=== PATIENT | female | born 1960 | race Caucasian/White ===

== ENCOUNTER 2016-12-15 10:36 | Emergency (ER) | payer BC ==
[~2016-12-15] VITALS: Ht 152.4 cm; Wt 32.7 kg
[~2016-12-15 10:36] MED LIST: ADVIN50050 INH; LEVO1TAB34 PO; OMEP20CA9 PO; PRED10TA PO; PRVHFAIN INH; TIOTCAP INH
[2016-12-15 10:44] VITALS: Ht 152.4 cm; Wt 32.7 kg
[2016-12-15 10:53] VITALS: O2SAT 96
[2016-12-15] MEDS ORDERED: ALBUT/IPRATROP 3MG/0.5MG NEB 3 ML VIAL INH STA (10:58)
[2016-12-15] MEDS ORDERED: PRED10TA PO (11:04)
[2016-12-15] MEDS ORDERED: SPRIN/30 INH (11:04)
[2016-12-15] MEDS ORDERED: VARE1PAK15 PO (11:07)
[2016-12-15] MEDS ORDERED: SYMIN160 INH (11:07)
[2016-12-15] MEDS ORDERED: SODIUM CHLORIDE 0.9% 1000ML 1,000 ML IV STA (11:18)
[2016-12-15] MEDS ORDERED: SODIUM CHLORIDE 0.9% 250ML 250 ML IV STA (11:18)
[2016-12-15] MEDS ORDERED: ONDANSETRON INJ 2 MG/ML 2 ML VIAL IV STA (11:21)
[2016-12-15] MEDS ORDERED: MoRPHine SULFATE 2 MG/ML CARP IV STA (11:21)
--- NOTE | 2016-12-15 11:25 | DIAGNOSTIC IMAGING REPORT ---
CHEST ONE VIEW PORTABLE CLINICAL HISTORY: Shortness of breath. Lung adenocarcinoma status post resection. COMPARISON STUDY: Chest CT March 21, 2016 and chest radiograph September 08, 2016 per FINDINGS: Postsurgical findings within the right lower lobe are noted. Nipple shadows project over each mid lung. There is no pneumothorax or pleural effusion. Lung hyperexpansion with emphysema is noted. Cardiac size is normal. Mediastinal contours are normal. There is no evidence of pulmonary edema. IMPRESSION: No acute findings. No change in appearance of the chest. Electronically signed by: Campos Ortiz M.D. 12/15/2016 11:23 AM Dictated Date/Time: 12/15/2016 11:22 AM
[2016-12-15 11:31] LABS: BASO % 0.3 %; BASO ABS # 0.03 K/uL (0-0.2); COMPLETE YES; EOS % 0.2 %; HEMATOCRIT 47.6 % (37-47); IG% 0.3 %; LYMPH % 11.4 %; LYMPH ABS # 1.18 K/uL (1.2-3.4); MEAN CELL VOLUME 92.2 fL (80-100); MEAN CORPUSCULAR HEMOGLOBIN 29.8 pg (25-34); MEAN CORPUSCULAR HGB CONC 32.4 g/dl (32-36); MEAN PLATELET VOLUME 10.5 fL (7.4-10.4); MONO % 10.4 %; NEUT % 77.4 %; PLATELET COUNT 256 K/uL (130-400); RED BLOOD COUNT 5.16 M/uL (4.2-5.4); WHITE BLOOD COUNT 10.36 K/uL (4.8-10.8)
[2016-12-15 11:48] LABS: ALT/SGPT 20 U/L (12-78); AST/SGOT 15 U/L (15-37); BLOOD UREA NITROGEN 13 mg/dl (7-18); BUN/CREATININE RATIO 21.3 (10-20); CARBON DIOXIDE 39 mmol/L (21-32); CHLORIDE 97 mmol/L (98-107); GLUCOSE 105 mg/dl (70-99); MAGNESIUM 2.2 mg/dl (1.8-2.4); POTASSIUM 4.2 mmol/L (3.5-5.1); SODIUM 140 mmol/L (136-145)
[2016-12-15 12:00] LABS: ALB/GLOB RATIO 1.1 (0.9-2); ALKALINE PHOSPHATASE 70 U/L (45-117); PHOSPHORUS 3.4 mg/dl (2.5-4.9); THYROID STIMULATING HORMONE 0.424 uIu/ml (0.300-4.500)
--- NOTE | 2016-12-15 12:23 | EMERGENCY ROOM VISIT NOTE ---
History First contact with patient: 10:50 Chief Complaint: RESPIRATORY PROBLEMS Stated Complaint: CAN'T BREATHE Nursing Triage Summary: pt reports increased sob with GAMBOA that started Fri, decreased po intake, + cough , no mucus production, denies cp or NV History of Present Illness The patient is a 56 year old female who presents to the Emergency Room with complaints of difficulty breathing. She has a history of Lung Ca with a RLL wedge resection last year by Dr Costa and COPD for which she is on intermittent home oxygen. She reports she was coughing more over the last week but couldn't bring anything up. She was wearing her home oxygen more than usual throughout the last two days. She was however at 1L instead of at the recommended 2L. She does report continued smoking despite her home oxygen. She denies any chest pain but has back spasms and GERD symptoms currently. She reports occasional nausea but has not vomited. She has apparently been working up until Thursday. Review of Systems See HPI for pertinent positives & negatives. A total of 10 systems reviewed and were otherwise negative. Past Medical/Surgical History Medical Problems: (1) COPD (chronic obstructive pulmonary disease) (2) Lung cancer Cachexia Low appetite Family History Cancer Lung disease Social History Smoking Status: Current Every Day Smoker Drug Use: none Occupation Status: employed ([employer]) Current/Historical Medications Scheduled Albuterol (Ventolin Hfa), 2 PUFFS INH QID Budesonide/Formoterol Fumarate (Symbicort 160/4.5 Inhaler), 2 PUFFS INH BID Omeprazole (Prilosec), 1 CAP PO DAILY Prednisone (Prednisone), 10 MG PO DAILY Tiotropium [place] (Spiriva Handihaler), 1 CAP INH DAILY Varenicline Tartrate (Chantix Starting Month Pa), 1 TAB PO UD Allergies Coded Allergies: No Known Allergies (Unverified , 12/15/16) Physical Exam Vital Signs Date Time Temp Pulse Resp B/P Pulse Ox O2 Delivery O2 Flow Rate FiO2 12/15/16 15:17 87 16 105/64 99 Nasal Cannula 3.0 12/15/16 14:28 85 12/15/16 14:26 83 16 98/59 96 Nasal Cannula 2.0 12/15/16 12:53 37.1 86 17 94 Nasal Cannula 2.0 12/15/16 12:46 88 17 94 12/15/16 12:41 88 18 94 12/15/16 12:36 86 17 94 12/15/16 12:28 97/62 12/15/16 12:06 86 17 94 12/15/16 11:58 106/66 12/15/16 11:45 91 20 97/63 96 Nasal Cannula 2.0 12/15/16 11:45 97/63 12/15/16 11:36 90 25 12/15/16 11:24 85 12/15/16 10:53 96 Nasal Cannula 4.0 12/15/16 10:44 37.1 120 20 103/64 89 Room Air Physical Exam GENERAL: Awake, alert, cachexic, mildly distressed. HENT: Normocephalic, atraumatic. Oropharynx unremarkable. EYES: Normal conjunctiva. Sclera non-icteric. NECK: Supple. No nuchal rigidity. FROM. No JVD. RESPIRATORY: Clear to auscultation. Intermittent wheeze. CARDIAC: Regular rate, normal rhythm. Extremities warm and well perfused. Pulses equal. ABDOMEN: Soft, non-distended. No tenderness to palpation. No rebound or guarding. No masses. RECTAL: Deferred. MUSCULOSKELETAL: Chest examination reveals no tenderness. The back is symmetrical on inspection without obvious abnormality. There is no CVA tenderness to palpation. No joint edema. LOWER EXTREMITIES: Calves are equal size bilaterally and non-tender. No edema. No discoloration. NEURO: Normal sensorium. No sensory or motor deficits noted. SKIN: No rash or jaundice noted. Medical Decision & Procedures Laboratory Results 12/15/16 11:20 Red Blood Count 5.16, Mean Corpuscular Volume 92.2, Mean Corpuscular Hemoglobin 29.8, Mean Corpuscular Hemoglobin Concent 32.4, Mean Platelet Volume 10.5, Neutrophils (%) (Auto) 77.4, Lymphocytes (%) (Auto) 11.4, Monocytes (%) (Auto) 10.4, Eosinophils (%) (Auto) 0.2, Basophils (%) (Auto) 0.3, Neutrophils # (Auto ) 8.02, Lymphocytes # (Auto) 1.18, Monocytes # (Auto) 1.08, Eosinophils # (Auto ) 0.02, Basophils # (Auto) 0.03 12/15/16 11:20 Test 12/15/16 11:20 12/15/16 14:05 White Blood Count 10.36 K/uL (4.8-10.8) Red Blood Count 5.16 M/uL (4.2-5.4) Hemoglobin 15.4 g/dL (12.0-16.0) Hematocrit 47.6 % (37-47) Mean Corpuscular Volume 92.2 fL (80-100) Mean Corpuscular Hemoglobin 29.8 pg (25-34) Mean Corpuscular Hemoglobin Concent 32.4 g/dl (32-36) Platelet Count 256 K/uL (130-400) Mean Platelet Volume 10.5 fL (7.4-10.4) Neutrophils (%) (Auto) 77.4 % Lymphocytes (%) (Auto) 11.4 % Monocytes (%) (Auto) 10.4 % Eosinophils (%) (Auto) 0.2 % Basophils (%) (Auto) 0.3 % Neutrophils # (Auto) 8.02 K/uL (1.4-6.5) Lymphocytes # (Auto) 1.18 K/uL (1.2-3.4) Monocytes # (Auto) 1.08 K/uL (0.11-0.59) Eosinophils # (Auto) 0.02 K/uL (0-0.5) Basophils # (Auto) 0.03 K/uL (0-0.2) RDW Standard Deviation 47.5 fL (36.4-46.3) RDW Coefficient of Variation 13.9 % (11.5-14.5) Immature Granulocyte % (Auto) 0.3 % Immature Granulocyte # (Auto) 0.03 K/uL (0.00-0.02) Anion Gap 4.0 mmol/L (3-11) Est Creatinine Clear Calc Drug Dose 54.1 ml/min Estimated GFR () 118.1 Estimated GFR (Non- 101.9 BUN/Creatinine Ratio 21.3 (10-20) Calcium Level 9.0 mg/dl (8.5-10.1) Phosphorus Level 3.4 mg/dl (2.5-4.9) Magnesium Level 2.2 mg/dl (1.8-2.4) Total Bilirubin 0.2 mg/dl (0.2-1) Aspartate Amino Transf (AST/SGOT) 15 U/L (15-37) Alanine Aminotransferase (ALT/SGPT) 20 U/L (12-78) Alkaline Phosphatase 70 U/L (45-117) Troponin I < 0.015 ng/ml (0-0.045) Total Protein 7.3 gm/dl (6.4-8.2) Albumin 3.8 gm/dl (3.4-5.0) Globulin 3.5 gm/dl (2.5-4.0) Albumin/Globulin Ratio 1.1 (0.9-2) Lipase 71 U/L (73-393) Thyroid Stimulating Hormone (TSH) 0.424 uIu/ml (0.300-4.500) Influenza Type A Antigen Neg for Influ A (NEG) Influenza Type B Antigen Neg for Influ B (NEG) Medications Administered Medications (Trade) Dose Ordered Sig/Steven Route Start Time Stop Time Status Last Admin Dose Admin Albuterol/ Ipratropium 3 ml 3 ml ONE STAT INH 12/15/16 10:58 12/15/16 10:59 DC 12/15/16 11:06 3 ML Sodium Chloride 1,000 ml @ 125 mls/hr Q8H STAT IV 12/15/16 11:18 12/15/16 15:26 DC 12/15/16 11:39 125 MLS/HR Sodium Chloride (Nss 250ml) 250 ml @ 999 mls/hr Q16M STAT IV 12/15/16 11:18 12/15/16 11:33 DC 12/15/16 11:40 999 MLS/HR Morphine Sulfate (MoRPHine SULFATE INJ) 2 mg NOW STAT IV 12/15/16 11:21 12/15/16 11:23 DC 12/15/16 11:39 2 MG Ondansetron HCl (Zofran Inj) 4 mg NOW STAT IV 12/15/16 11:21 12/15/16 11:23 DC 12/15/16 11:38 4 MG Procedure CHEST ONE VIEW PORTABLE CLINICAL HISTORY: Shortness of breath. Lung adenocarcinoma status post resection. COMPARISON STUDY: Chest CT March 21, 2016 and chest radiograph September 08, 2016 per FINDINGS: Postsurgical findings within the right lower lobe are noted. Nipple shadows project over each mid lung. There is no pneumothorax or pleural effusion. Lung hyperexpansion with emphysema is noted. Cardiac size is normal. Mediastinal contours are normal. There is no evidence of pulmonary edema. IMPRESSION: No acute findings. No change in appearance of the chest. CT OF THE HEAD WITHOUT CONTRAST CLINICAL HISTORY: Headaches. History of lung cancer. COMPARISON STUDY: No previous studies for comparison. CT DOSE: 795.47 mGy.cm TECHNIQUE: Helical axial images of the head were obtained without IV contrast. Automated exposure control was utilized for the study. FINDINGS: No acute intracranial hemorrhage, midline shift or mass effect is present. Ventricular system is normal. The basilar cisterns are patent. There are no extra-axial collections. A few white matter hypodensities may reflect small vessel disease. There are no findings to suggest acute dural sinus thrombosis or acute territorial infarct. No significant calvarial abnormalities are present. There is trace fluid within the left mastoid air cells. Visualized portions of the sinuses are clear. IMPRESSION: 1. No acute intracranial findings. 2. No evidence of intracranial metastatic disease on this unenhanced exam. ECG Indication: SOB/dyspnea Rhythm: sinus with SA Change: no significant change ED Course 1040: The patient was evaluated in room C9. 1045: I ordered a CBC, CMP, CXR, Duoneb 1125: Dr Davlia evaluated the patient, who was feeling nauseated. We provided her with Compazine and 2mg Morphine and a 500mL NSS bolus as her HR was elevated and BP low. 1221: We ordered a CT head as well. I reviewed the patient and she was sitting upright talking comfortably with her . 1:20: I checked on the patient. She reported her headache had resolved. I told them they would be discharged home if she felt well. They agreed, then as I left called me back into the room, and said they would not want to take her home if she was not able to walk as she usually does. I reminded them that they should not be smoking if she has home oxygen. 1:35: We will give her food and ambulate her. If she does not tolerate this we will admit her to inpatient rehab. 2:00: I discussed her case with the Epic Trainer Jackie. She discussed inpatient rehab with the patient which she denied. 2:11: We completed a flu swab antigen test which was negative. Medical Decision 56 yo F with hx lung Ca and end-stage COPD who presents with worsening shortness of breath over 3 days - differential includes influenza, dehydration, metastases of lung cancer, COPD exacerbation, or pneumonia. Her breathing improved when placed on 4L Nasal cannula. Her BP and HR improved after fluid bolus, and were later 97/62 with a HR of 91. She is extremely cachetic at a weight of 32kg which is concerning for metastases. Her CXR was reviewed and was normal. She did not have a leukocytosis. When she was on 2L oxygen her saturations improved, and since she felt weak getting up we offered that she could go to inpatient rehab as she did not have any criteria for admission. She reported that she felt like she had the flu and did not want to go to inpatient rehab. The patient then agreed she would go home, and was discharged in good condition. Impression Primary Impression: Shortness of breath Additional Impression: Viral URI Departure Information Dispostion Home / Self-Care Condition GOOD Referrals Amanda Rey M.D. (PCP) Patient Instructions My [facility] Resident Tracking Resident Involvement: Resident Care Provided Care Provided: Adult ED Problem Qualifiers
[2016-12-15 12:53] VITALS: TEMP 37.1
--- NOTE | 2016-12-15 13:09 | DIAGNOSTIC IMAGING REPORT ---
CT OF THE HEAD WITHOUT CONTRAST CLINICAL HISTORY: Headaches. History of lung cancer. COMPARISON STUDY: No previous studies for comparison. CT DOSE: 795.47 mGy.cm TECHNIQUE: Helical axial images of the head were obtained without IV contrast. Automated exposure control was utilized for the study. FINDINGS: No acute intracranial hemorrhage, midline shift or mass effect is present. Ventricular system is normal. The basilar cisterns are patent. There are no extra-axial collections. A few white matter hypodensities may reflect small vessel disease. There are no findings to suggest acute dural sinus thrombosis or acute territorial infarct. No significant calvarial abnormalities are present. There is trace fluid within the left mastoid air cells. Visualized portions of the sinuses are clear. IMPRESSION: 1. No acute intracranial findings. 2. No evidence of intracranial metastatic disease on this unenhanced exam. Electronically signed by: Campos Ortiz M.D. 12/15/2016 1:07 PM Dictated Date/Time: 12/15/2016 1:03 PM
[2016-12-15 15:17] VITALS: BP 105/64; PULSE 87; O2SAT 99
[2016-12-15 16:41] LABS: INFLUENZA A PCR Neg for Influ A (NEG); INFLUENZA B PCR Neg for Influ B (NEG)
--- NOTE | 2016-12-16 19:58 | EMERGENCY ROOM VISIT NOTE ---
ED Visit Note First contact with patient: 10:50 Resident Physician Supervision Note: I interviewed and examined the patient. Discussed with Dr. Núñez and agree with findings and plan as documented in the note. Any exceptions or clarifications are listed here: This patient was evaluated and appeared to be in no significant distress. Patient was resting comfortably on her home oxygen. She is able to ambulate without difficulty. Patient will be discharged to follow-up with her primary care physician. She will return to the ER for worsening of symptoms or any medical concerns. Diagnosis: Shortness of breath, viral URI Documented By: Melissa Davila
== END 2016-12-15 15:19 | disposition home or self-care (01) ==
LOC: C.EDB 10:37 → C.EDC 15:19
DX: J06.9 Acute upper respiratory infection, unspecified (principal); R06.02 Shortness of breath; J44.9 Chronic obstructive pulmonary disease, unspecified; F17.200 Nicotine dependence, unspecified, uncomplicated; Z79.899 Other long term (current) drug therapy; Z85.118 Personal history of other malignant neoplasm of bronchus and lung

== ENCOUNTER → 2017-01-07 | Outpatient (CLI) | payer BC ==
[~2017-01-07] MED LIST changes: -ADVIN50050 INH; +IPRASOL4 INH; +LEVO-366 PO; -LEVO1TAB34 PO; +OPTIRAY 320 IV PRN; +PRLSR20 PO; +SPRIN/30 INH; +SYMIN160 INH; -TIOTCAP INH; +VARE1PAK15 PO; +VNTHFA/IN INH
--- NOTE | 2017-01-07 13:13 | DIAGNOSTIC IMAGING REPORT ---
CHEST CT WITH CONTRAST CT DOSE: 211.46 mGy.cm HISTORY: Adenocarcinoma C34.90 Adenocarcinoma of lungD38.1 Neoplasm of uncertain behavior TECHNIQUE: Multiaxial CT images of the chest were performed following the intravenous administration of contrast. COMPARISON: 03/21/2016 FINDINGS: Stable postoperative change including postoperative nodularity/scarring of the right infrahilar region. Baseline emphysematous change is stable. There is no evidence for new interval or progressive component of nodularity or infiltrative change. Hilar and mediastinal regions show no significant adenopathy. IMPRESSION: Stable evaluation of the chest. Unchanging postoperative change right base. No new interval or progressive process Electronically signed by: Sajan Magana M.D. 01/07/2017 1:11 PM Dictated Date/Time: 01/07/2017 12:54 PM
== END | disposition home or self-care (01) ==
LOC: C.CTS 12:20
PROVIDERS: ATTEND Surgery
DX: C34.90 Malignant neoplasm of unspecified part of unspecified bronchus or lung (principal); D38.1 Neoplasm of uncertain behavior of trachea, bronchus and lung

== ENCOUNTER 2017-03-02 20:01 | Emergency (ER) | payer BC ==
[~2017-03-02] VITALS: Ht 152.4 cm; Wt 30.6 kg
[~2017-03-02 20:01] MED LIST changes: -IPRASOL4 INH; -LEVO-366 PO; -OPTIRAY 320 IV PRN; -PRLSR20 PO; -VNTHFA/IN INH
[2017-03-02 20:06] VITALS: TEMP 36.8; Ht 152.4 cm; Wt 30.6 kg
[2017-03-02] MEDS ORDERED: METHYLPREDNISOLONE 125 MG VIAL IV STA (20:23)
[2017-03-02] MEDS ORDERED: SODIUM CHLORIDE 0.9% 1000ML 1,000 ML IV STA (20:23)
[2017-03-02] MEDS ORDERED: ALBUT/IPRATROP 3MG/0.5MG NEB 3 ML VIAL INH STA (20:23)
--- NOTE | 2017-03-02 20:31 | EMERGENCY ROOM VISIT NOTE ---
History Report prepared by Franco: Kathryn Givens Under the Supervision of: Dr. Melissa Davila M.D. First contact with patient: 20:15 Chief Complaint: RESPIRATORY PROBLEMS Stated Complaint: CANT BREATHE Nursing Triage Summary: pt states having trouble breathing, usually uses 1l o2 by nc at home but has been using 2.5 at home. 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 The patient states that she has had trouble breathing and called her PCP one week ago and got albuterol but it did not help her shortness of breath. She states that she started an antibiotic and prednisone a few days ago but it has still persisted. The patient states that she has been coughing and had a productive cough today with yellow sputum. She also states she has been more fatigued recently. She denies any chest pain. She states that she took 30 mg of prednisone today before coming to the ED. 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 A total of 10 systems reviewed and were otherwise negative. Past Medical & Surgical Medical Problems: (1) COPD (chronic obstructive pulmonary disease) (2) Lung cancer Family History Cancer Lung disease Social History Smoking Status: Current Every Day Smoker Drug Use: none Occupation Status: employed Current/Historical Medications Scheduled Budesonide/Formoterol Fumarate (Symbicort 160/4.5 Inhaler), 2 PUFFS INH BID Ipratropium-Albuterol (Duoneb), 1 TREATMENT INH TID Levofloxacin (Levaquin), 500 MG PO DAILY Omeprazole (Prilosec), 20 MG PO DAILYBB Prednisone (Prednisone), 10 MG PO DAILY Tiotropium [place] (Spiriva Handihaler), 1 CAP INH DAILY Varenicline Tartrate (Chantix Starting Month Pa), 2 TAB PO UD Scheduled PRN Albuterol Hfa (Ventolin Hfa), 2 PUFFS INH QID PRN for SOB/Wheezing Allergies Coded Allergies: No Known Allergies (Unverified , 03/02/17) Physical Exam Vital Signs Date Time Temp Pulse Resp B/P Pulse Ox O2 Delivery O2 Flow Rate FiO2 03/02/17 22:43 92 22 125/73 93 03/02/17 21:21 94 18 98/74 95 Nebulizer 03/02/17 21:01 88 03/02/17 20:41 96 Nasal Cannula 2.0 03/02/17 20:06 36.8 98 24 110/71 95 Nasal Cannula 2.0 03/02/17 20:06 Nasal Cannula 2.0 Physical Exam Vital signs reviewed. General: Chronically ill appearing, thin, smells of tobacco. HEENT: No scleral icterus, PERRLA, neck supple. Atraumatic. Cardiovascular: Regular rate and rhythm, no extra sounds. Pulmonary: Minimal breath sounds bilaterally. Abdomen: Soft, nontender, nondistended, positive bowel sounds. Musculoskeletal: Atraumatic, no peripheral edema. Neurologic: Patient awake alert and oriented x 3, full strength in all 4 extremities. Cranial nerves 2 through 12 grossly intact. Skin: Warm, dry, no rash Medical Decision & Procedures ER Provider Diagnostic Interpretation: X-ray results as stated below per interpretation by me and the radiologist: SINGLE VIEW CHEST CLINICAL HISTORY: Cough. COPD. Dyspnea. FINDINGS: An AP, portable, upright chest radiograph is compared to study dated 12/15/2016 and correlated with chest CT dated 01/07/2017. The examination is degraded by portable technique and patient rotation. The cardiomediastinal silhouette is unremarkable. Severe emphysema and chronic interstitial thickening are similar to previous. Postoperative change is seen in the right lower lobe. There is no airspace consolidation or large pleural effusion. Nipple shadows are noted bilaterally. No pneumothorax is seen. The skeletal structures are osteopenic. The bony thorax is grossly intact. IMPRESSION: Severe emphysema with no acute cardiopulmonary abnormality. Electronically signed by: Den Vaz M.D. 03/02/2017 9:30 PM Dictated Date/Time: 03/02/2017 9:29 PM Laboratory Results 03/02/17 20:40 Red Blood Count 4.45, Mean Corpuscular Volume 91.9, Mean Corpuscular Hemoglobin 28.8, Mean Corpuscular Hemoglobin Concent 31.3, Mean Platelet Volume 9.9, Neutrophils (%) (Auto) 78.1, Lymphocytes (%) (Auto) 11.9, Monocytes (%) (Auto) 9.2, Eosinophils (%) (Auto) 0.1, Basophils (%) (Auto) 0.1, Neutrophils # (Auto) 8.16, Lymphocytes # (Auto) 1.24, Monocytes # (Auto) 0.96, Eosinophils # (Auto) 0.01, Basophils # (Auto) 0.01 03/02/17 20:38 Test 03/02/17 20:38 03/02/17 20:40 Anion Gap 3.0 mmol/L (3-11) Est Creatinine Clear Calc Drug Dose 50.8 ml/min Estimated GFR () 117.9 Estimated GFR (Non- 101.7 BUN/Creatinine Ratio 19.9 (10-20) Calcium Level 9.2 mg/dl (8.5-10.1) Magnesium Level 2.3 mg/dl (1.8-2.4) Total Bilirubin 0.1 mg/dl (0.2-1) Direct Bilirubin < 0.1 mg/dl (0-0.2) Aspartate Amino Transf (AST/SGOT) 17 U/L (15-37) Alanine Aminotransferase (ALT/SGPT) 26 U/L (12-78) Alkaline Phosphatase 82 U/L (45-117) Total Protein 6.7 gm/dl (6.4-8.2) Albumin 2.7 gm/dl (3.4-5.0) White Blood Count 10.44 K/uL (4.8-10.8) Red Blood Count 4.45 M/uL (4.2-5.4) Hemoglobin 12.8 g/dL (12.0-16.0) Hematocrit 40.9 % (37-47) Mean Corpuscular Volume 91.9 fL (80-100) Mean Corpuscular Hemoglobin 28.8 pg (25-34) Mean Corpuscular Hemoglobin Concent 31.3 g/dl (32-36) Platelet Count 302 K/uL (130-400) Mean Platelet Volume 9.9 fL (7.4-10.4) Neutrophils (%) (Auto) 78.1 % Lymphocytes (%) (Auto) 11.9 % Monocytes (%) (Auto) 9.2 % Eosinophils (%) (Auto) 0.1 % Basophils (%) (Auto) 0.1 % Neutrophils # (Auto) 8.16 K/uL (1.4-6.5) Lymphocytes # (Auto) 1.24 K/uL (1.2-3.4) Monocytes # (Auto) 0.96 K/uL (0.11-0.59) Eosinophils # (Auto) 0.01 K/uL (0-0.5) Basophils # (Auto) 0.01 K/uL (0-0.2) RDW Standard Deviation 44.5 fL (36.4-46.3) RDW Coefficient of Variation 13.1 % (11.5-14.5) Immature Granulocyte % (Auto) 0.6 % Immature Granulocyte # (Auto) 0.06 K/uL (0.00-0.02) Laboratory results per my review. Medications Administered Medications (Trade) Dose Ordered Sig/Steven Route Start Time Stop Time Status Last Admin Dose Admin Albuterol/ Ipratropium (Duoneb) 3 ml NOW STAT INH 03/02/17 20:23 03/02/17 20:26 DC 03/02/17 21:18 3 ML Methylprednisolone Sodium Succinate 60 mg 60 mg NOW STAT IV 03/02/17 20:23 03/02/17 20:26 DC 03/02/17 21:17 60 MG Sodium Chloride (Nss 1000ml) 1,000 ml @ 125 mls/hr Q8H STAT IV 03/02/17 20:23 03/02/17 23:04 DC 03/02/17 21:17 125 MLS/HR ECG Indication: SOB/dyspnea Rate (beats per minute): 83 Rhythm: normal sinus Findings: no acute ischemic change, no ectopy, other (right axis deviation, previous anterior infarct) ED Course 2014: Past medical records reviewed. The patient was evaluated in room C6. A complete history and physical examination was performed. 2022: Ordered Sodium Chloride 1,000 ml @ 125 mls/hr IV, Solu-Medrol Iv 60 mg IV , Duoneb 3 ml INH. 9: Upon reevaluation, the patient appeared to have improvement of her symptoms. I discussed findings with her. She verbalized agreement of the treatment plan. The patient was discharged home. Medical Decision The patient is a 57 year old female who presents to the ED with complaints of shortness of breath. Differentials include infections, reactive airway disease , pneumonia, pneumothorax, COPD, CHF, cardiac ischemia, pulmonary embolism, musculoskeletal, gastrointestinal, as well as others were entertained. This pt was evaluated and appeared to be in no distress. IV access was obtained and lab work was drawn. Pt was placed on the patient monitor. Pt was on N/c O2 with stable pulse ox. CXR is C/w COPD. Pt was given 60 mg IV solumedral and a duoneb tx. Lab work reveals some CO2 retention, which is not surprising. Pt was d/c on levaquin, to continue prednisone and nebulizers. She will return to the ED for worsening of symptoms or any medical concerns. Impression Primary Impression: COPD exacerbation Scribe Attestation The scribe's documentation has been prepared under my direction and personally reviewed by me in its entirety. I confirm that the note above accurately reflects all work, treatment, procedures, and medical decision making performed by me. Departure Information Dispostion Home / Self-Care Prescriptions Levofloxacin (Levaquin) 500 Mg Tab 500 MG PO DAILY for 6 Days, #6 TAB Prov: Melissa Davila M.D. 03/02/17 Referrals Shar Allen DO (PCP) Forms HOME CARE DOCUMENTATION FORM, IMPORTANT VISIT INFORMATION, WORK / SCHOOL INSTRUCTIONS Patient Instructions My [facility] Additional Instructions Diagnosis: COPD exacerbation Continue DuoNeb treatments every 4 hours for shortness of breath, wheezing or cough. Continue steroids as prescribed. Stop the current antibiotic and begin Levaquin 500 mgs daily for 6 more days, start tomorrow. Wear your oxygen as prescribed. Return to the ER for worsening of symptoms or any medical concerns.
[2017-03-02 20:56] LABS: BASO % 0.1 %; BASO ABS # 0.01 K/uL (0-0.2); COMPLETE YES; EOS % 0.1 %; HEMATOCRIT 40.9 % (37-47); IG% 0.6 %; LYMPH % 11.9 %; LYMPH ABS # 1.24 K/uL (1.2-3.4); MEAN CELL VOLUME 91.9 fL (80-100); MEAN CORPUSCULAR HEMOGLOBIN 28.8 pg (25-34); MEAN CORPUSCULAR HGB CONC 31.3 g/dl (32-36); MEAN PLATELET VOLUME 9.9 fL (7.4-10.4); MONO % 9.2 %; NEUT % 78.1 %; PLATELET COUNT 302 K/uL (130-400); RED BLOOD COUNT 4.45 M/uL (4.2-5.4); WHITE BLOOD COUNT 10.44 K/uL (4.8-10.8)
--- NOTE | 2017-03-02 21:31 | DIAGNOSTIC IMAGING REPORT ---
SINGLE VIEW CHEST CLINICAL HISTORY: Cough. COPD. Dyspnea. FINDINGS: An AP, portable, upright chest radiograph is compared to study dated 12/15/2016 and correlated with chest CT dated 01/07/2017. The examination is degraded by portable technique and patient rotation. The cardiomediastinal silhouette is unremarkable. Severe emphysema and chronic interstitial thickening are similar to previous. Postoperative change is seen in the right lower lobe. There is no airspace consolidation or large pleural effusion. Nipple shadows are noted bilaterally. No pneumothorax is seen. The skeletal structures are osteopenic. The bony thorax is grossly intact. IMPRESSION: Severe emphysema with no acute cardiopulmonary abnormality. Electronically signed by: Den Vaz M.D. 03/02/2017 9:30 PM Dictated Date/Time: 03/02/2017 9:29 PM
[2017-03-02 21:42] LABS: ALKALINE PHOSPHATASE 82 U/L (45-117); ALT/SGPT 26 U/L (12-78); AST/SGOT 17 U/L (15-37); BLOOD UREA NITROGEN 12 mg/dl (7-18); BUN/CREATININE RATIO 19.9 (10-20); CALCIUM 9.2 mg/dl (8.5-10.1); CARBON DIOXIDE 42 mmol/L (21-32); CHLORIDE 96 mmol/L (98-107); CREATININE 0.59 mg/dl (0.60-1.20); GLUCOSE 87 mg/dl (70-99); MAGNESIUM 2.3 mg/dl (1.8-2.4); POTASSIUM 4.4 mmol/L (3.5-5.1); SODIUM 141 mmol/L (136-145)
[2017-03-02] MEDS ORDERED: LEVO-366 PO (22:14)
[2017-03-02] MEDS ORDERED: PRLSR20 PO (22:29)
[2017-03-02] MEDS ORDERED: IPRASOL4 INH (22:29)
[2017-03-02] MEDS ORDERED: VNTHFA/IN INH (22:29)
[2017-03-02 22:43] VITALS: BP 125/73; PULSE 92; O2SAT 93
== END 2017-03-02 22:43 | disposition home or self-care (01) ==
LOC: C.EDB 20:02 → C.EDC 22:43
DX: J44.1 Chronic obstructive pulmonary disease with (acute) exacerbation (principal); F17.200 Nicotine dependence, unspecified, uncomplicated; Z85.118 Personal history of other malignant neoplasm of bronchus and lung; Z79.899 Other long term (current) drug therapy; Z80.9 Family history of malignant neoplasm, unspecified

== ENCOUNTER → 2017-07-30 | Outpatient (CLI) | payer BC ==
[~2017-07-30] MED LIST changes: +IPRASOL4 INH; -OMEP20CA9 PO; +PRLSR20 PO; -PRVHFAIN INH; +VNTHFA/IN INH
--- NOTE | 2017-07-30 12:05 | DIAGNOSTIC IMAGING REPORT ---
(CHEST) THORAX WITHOUT CLINICAL HISTORY: C34.90 Adenocarcinoma of [id number] COMPARISON STUDY: 01/07/2017 CT DOSE: 174.23 mGycm TECHNIQUE: CT of the thorax was performed from the thoracic inlet to the lung bases. Images are reviewed in the axial, sagittal, and coronal planes. IV contrast was not administered for this examination. A dose lowering technique was utilized adhering to the principles of ALARA. FINDINGS: Thyroid: Imaged portions of the thyroid gland are normal in appearance. Thoracic aorta: The thoracic aorta is normal in course and caliber, noting standard 3 vessel arch anatomy. Heart: The heart is normal in size and configuration, without pericardial effusion. Lungs and pleural spaces: There is severe pulmonary emphysema. The patient is status post a right lower lobe wedge resection. There is increasing nodularity along the suture line. The findings are viewed as suspicious for recurrent neoplasm. There are several tiny satellite nodules visualized adjacent the superior margin of the suture. Mediastinum: There is no mediastinal lymphadenopathy. Patricia: There is no evidence of pathologic hilar adenopathy given the limitations of a noncontrast study Axilla: Clear. Upper abdomen: Partially visualized upper abdominal viscera is within normal limits. Skeletal structures: There are no lytic or blastic osseous lesions. IMPRESSION: 1. Postsurgical changes of a right lower lobe wedge resection. There is increasing nodularity along the course of the suture line. The findings are viewed as highly suspicious for recurrent neoplasm. PET CT follow-up or rebiopsy should be considered. 2. Severe pulmonary emphysema Electronically signed by: Praveen Davis M.D. 07/30/2017 12:04 PM Dictated Date/Time: 07/30/2017 11:55 AM
== END | disposition home or self-care (01) ==
LOC: C.CTS 11:40
PROVIDERS: ATTEND Surgery
DX: C34.90 Malignant neoplasm of unspecified part of unspecified bronchus or lung (principal); R91.8 Other nonspecific abnormal finding of lung field; J43.9 Emphysema, unspecified; Z90.2 Acquired absence of lung [part of]

== ENCOUNTER → 2017-08-10 | Outpatient (CLI) | payer BC ==
--- NOTE | 2017-08-10 12:15 | DIAGNOSTIC IMAGING REPORT ---
PET/CT CLINICAL HISTORY: Non-small cell lung cancer. COMPARISON STUDY: PET/CT dated 07/21/2016. Chest CT scan dated 07/30/2017, 01/07/2017, and 12/06/15. TECHNIQUE: One hour following the IV administration of 12.23 mCi of F-18 FDG, PET/CT examination was performed from the orbital meatal line through the bony pelvis. Noncontrast CT is performed for the purposes of anatomic correlation and attenuation correction. Note that this does not reflect a diagnostic CT examination. Images were reviewed on a separate [employer] independent workstation. Fused images were obtained. Standard uptake values reported are maximum values within the region of interest expressed in gm/mL. FINDINGS: PET FINDINGS: Head and neck: There is expected physiologic activity within the visualized brain parenchyma at the skull base and the salivary glands. Low level pharyngeal activity is likely within physiologic limits. Thorax: Evaluation of the thorax demonstrates expected physiologic myocardial activity. There is abnormal nodular/lobulated soft tissue identified in the right lower lobe along the suture margin. A lobular lesion on image #104 measures approximately 3 x 3 cm in aggregate dimension. A nodular component more superiorly in the right lower lobe on image #98 measures 1.3 x 1.9 cm. These are FDG the maximum SUV of 1.3. There are at least 2 additional tiny pulmonary nodules in the right lower lobe seen on images #108 and #110. These were not demonstrably FDG avid but are too small for PET characterization. A subtle 8 mm groundglass lesion in the right upper lobe as seen on image #91. This was not demonstrably FDG avid but is too small for PET characterization. There is any clinical 5 mm focus of nodularity in the lingula seen on image #91. This appears to demonstrate low level FDG activity with a maximum SUV of 0.6. There are no pathologically enlarged or FDG avid mediastinal or hilar lymph nodes. Abdomen and pelvis: There is expected activity within the liver, spleen, kidneys, renal collecting system, and bladder. Low-level bowel activity is likely within physical limits. Unenhanced CT images: Partially visualized brain parenchyma at the skull base is grossly unremarkable noting age-related involutional change. The bony orbits are intact and orbital contents are normal in appearance. The visualized paranasal sinuses and the mastoid air cells are clear. The salivary and thyroid glands are normal as visualized. No cervical lymphadenopathy is seen. There is atherosclerotic calcification of the thoracic aorta which is normal in caliber. The heart is normal in size and without pericardial effusion. There are scattered coronary artery calcifications. Advanced emphysema is noted. No airspace consolidation is seen typical for pneumonia and there is no pleural effusion. Postoperative change is noted in the right lower lobe. The trachea is patent noting minimal intraluminal secretions. The patient is cachectic. The unenhanced liver, gallbladder, spleen, adrenal glands, kidneys, and pancreas are grossly normal. The abdominal aorta is normal in caliber noting advanced atherosclerotic calcification. There is no bowel obstruction. Moderate colonic fecal retention is observed. A normal appendix is identified. No intraperitoneal free air or abdominal ascites is seen. There is no abdominal, pelvic, or inguinal lymphadenopathy. The bladder, uterus, and adnexa are normal as visualized. The skeletal structures are osteopenic. No lytic or blastic lesions are seen. IMPRESSION: 1. Advanced emphysema and postoperative change from right lower lobe resection. 2. Again seen are foci of lobulated/nodular soft tissue in the right lower lobe along the resection margin. This has increased in size over prior examinations and is demonstrably FDG avid. This should be considered recurrent neoplasm until proven otherwise. 3. Additional subcentimeter nodules in the right lower lobe have also increased from previous. These are not markedly FDG avid, are too small for PET characterization, and are also concerning for disease. 4. There is an equivocal 5 mm focus of nodularity in the lingula which appears mildly FDG avid. This is of indeterminant significance and continued attention at follow-up is recommended. 5. No FDG avid mediastinal or hilar adenopathy is seen. 6. There is no evidence of extrathoracic metastatic disease. 7. Additional findings as above. Electronically signed by: Den Vaz M.D. 08/10/2017 12:14 PM Dictated Date/Time: 08/10/2017 11:48 AM
== END | disposition home or self-care (01) ==
LOC: C.PET 08:46
PROVIDERS: ATTEND Surgery
DX: C34.90 Malignant neoplasm of unspecified part of unspecified bronchus or lung (principal); J43.9 Emphysema, unspecified; R91.8 Other nonspecific abnormal finding of lung field

== ENCOUNTER 2017-08-20 09:30 | Inpatient (IN) | payer BC ==
[2017-08-20] VITALS (11 sets, daily range): BP systolic 80–135; BP diastolic 51–78; PULSE 75–103; TEMP 36.8; O2SAT 91–100; Ht 152.4 cm; Wt 30.0 kg
[~2017-08-20] VITALS: Ht 152.4 cm; Wt 30.0 kg
[2017-08-20] MEDS ORDERED: MAGNESIUM SULFATE 1GM / D5W 1 GM BAG IV STA (09:32)
--- NOTE | 2017-08-20 09:37 | EMERGENCY ROOM VISIT NOTE ---
History Report prepared by Franco: Latosha Pressley Under the Supervision of: Dr. Maurilio Gardiner M.D. First contact with patient: 09:32 Chief Complaint: RESPIRATORY DISTRESS Stated Complaint: RESPIRATORY History of Present Illness The patient is a 57 year old female who presents to the Emergency Room with persistent respiratory distress that began prior to arrival. Per EMS the patient arrives in respiratory distress after receiving 1 mg of Magnesium, 2 DuoNeb treatments , and 125 mg of Solu-Medrol. The patient's family states that the patient has had a persistent cough. The patient's family states that the patient has never needed an oxygen mask in the past. They deny the patient being on any anticoagulants. The patient states that she is a current smoker. The patient's family notes that the patient has a history of a right lower lobectomy. Per the patient's family the patient was supposed to have an appointment with Dr. Costa today. The patient states that she is breathing better with the mask on. The history is limited secondary to the patient's respiratory distress. Source of History: patient, family, EMS History Limited By: other (respiratory distress) Onset: prior to arrival Position: other (global) Quality: other (respiratory distress) Timing: other (persistent) Associated Symptoms: + cough Review of Systems The history and ROS are limited secondary to the patient's respiratory distress. Past Medical & Surgical Medical Problems: (1) Adenocarcinoma, lung (2) COPD, severe Surgical Problems: (1) H/O tubal ligation (2) S/P partial lobectomy of lung Family History Cancer Lung disease Social History Smoking Status: Current Every Day Smoker Alcohol Use: none Drug Use: none Marital Status: Housing Status: lives with significant other Occupation Status: employed Current/Historical Medications Scheduled Amoxicillin & Pot Clavulanate (Augmentin 500MG), 500 MG PO Q12 Budesonide/Formoterol Fumarate (Symbicort 160/4.5 Inhaler), 2 PUFFS INH BID Omeprazole (Prilosec), 20 MG PO DAILYBB Prednisone (Prednisone), 10 MG PO DIRECTED Prednisone Tab (Prednisone), 10 MG PO DAILY Tiotropium Milano (Spiriva Handihaler), 1 CAP INH DAILY Scheduled PRN Albuterol Hfa (Ventolin Hfa), 2 PUFFS INH QID PRN for SOB/Wheezing Ipratropium-Albuterol (Duoneb), 1 TREATMENT INH TID PRN for SOB/Wheezing Allergies Coded Allergies: No Known Allergies (Unverified , 03/02/17) Physical Exam Vital Signs Date Time Temp Pulse Resp B/P (MAP) Pulse Ox O2 Delivery O2 Flow Rate FiO2 08/20/17 12:00 89 22 81/55 89 CPAP 40 08/20/17 11:00 88 87/56 96 CPAP 40 08/20/17 10:46 89 110/62 97 CPAP 40 08/20/17 10:40 89 100 08/20/17 10:39 88 99/62 99 CPAP 45 08/20/17 10:15 96 95/72 98 CPAP 08/20/17 10:00 100 94/70 98 CPAP 100 08/20/17 09:45 104 98 100 08/20/17 09:45 103 20 99 BiPAP/CPAP 80 08/20/17 09:40 97 CPAP 100 08/20/17 09:40 96 CPAP 15.0 100 08/20/17 09:40 36.5 118 22 153/85 98 CPAP 100 08/20/17 09:40 97 CPAP 15.0 100 08/20/17 09:35 103 99 80 08/20/17 09:34 98 08/20/17 09:32 153/85 Physical Exam GENERAL: Following commands, falling asleep on exam, on BI PAP, in acute distress HEAD: Normocephalic atraumatic EYES: Ocular movements intact pupils equal and react to light OROPHARYNX mucous membranes are moist no exudates present no erythema or edema present NECK: Supple no nuchal rigidity CHEST: Good equal expansion LUNGS: Distant breath sounds CARDIAC: Normal S1 and S2 ABDOMEN: Soft nontender no guarding BACK: No CVA tenderness EXTREMITIES: No pain upon palpation normal muscle strength in all groups no clubbing cyanosis or edema NEURO: Patient is following commands and answering questions appropriately. Alert and oriented x3 Cranial Nerves 2-12 grossly intact Medical Decision & Procedures ER Provider Diagnostic Interpretation: Radiology results as stated below per my review and radiologist interpretation: CHEST ONE VIEW PORTABLE HISTORY: 57 years-old Female Pt c/o SOB acute shortness of breath COMPARISON: Chest radiograph 03/02/2017, PET CT 08/10/2017 TECHNIQUE: Portable upright AP view of the chest FINDINGS: Cardiac silhouette is within normal limits. There is enlargement of the pulmonary arteries suggesting pulmonary arterial hypertension. Posterior vertebral changes of the right lower lobe are again seen with adjacent nodularity. Advanced and is evidence changes with areas of background interstitial coarsening. No pneumothorax or pleural effusion identified. The bones are grossly intact. IMPRESSION: 1. Emphysema without acute cardiopulmonary process. 2. Postsurgical changes of the right lower lobe with persistent adjacent nodularity. Please refer to PET/CT 08/10/2017 for further details. The above report was generated using voice recognition software. It may contain grammatical, syntax or spelling errors. Electronically signed by: Brad Anderson M.D. 08/20/2017 9:57 AM Dictated Date/Time: 08/20/2017 9:55 AM (CHEST FOR PE) ANGIO WITH CT DOSE: 243.23 mGycm HISTORY: 57 years-old Female presents with acute shortness of breath with history of lung carcinoma. TECHNIQUE: Multiple CTA images of the chest were obtained after the intravenous administration of 90 mL Optiray 320. Coronal and sagittal MIPS were obtained from the axial data set and were submitted for review. A dose lowering technique was utilized adhering to the principles of ALARA. COMPARISON: Chest CT 07/30/2017, PET CT 08/10/2017 FINDINGS: CTA: Heart is normal in size. Coronary arterial calcifications are noted. Moderate atherosclerotic plaquing of the thoracic aorta and origin of the left subclavian artery. Image great vessels are patent. No aortic dissection or aneurysm the pulmonary chill tree is opacified the level of the subsegmental branches and demonstrates no focal filling defects to suggest pulmonary thromboembolic disease. CT CHEST: No dominant thyroid nodule or pathologic adenopathy. There is no pneumothorax or pleural effusion. Advanced bullous centrilobular emphysematous changes are noted with areas of interstitial coarsening and pleural parenchymal scarring. Postsurgical changes of apparent prior wedge resection of the right lower lobe with nodularity again seen along the suture material measuring up to 2.0 x 3.4 cm on image 133 of series 4 with area of more medial nodularity measuring up to 1.8 x 1.1 cm. These findings overall appears stable from study dated 08/10/2017. Additional areas of nodularity are present within the right lower lobe as previously discussed. Moderate bronchial wall thickening bilaterally, greatest within the lower lobes. Previously described 5 mm nodule within the lingula is not clearly seen on today's study. No new suspicious pulmonary nodules identified. Central airways are patent. Imaged upper abdominal structures are unremarkable. Tissues are within normal limits. The bones appear intact without suspicious lytic or blastic lesions identified. IMPRESSION: 1. No acute cardiopulmonary process, specifically no acute aortic pathology or evidence of pulmonary thromboembolic disease. 2. Prior wedge resection of the right lower lobe with persistent multifocal soft tissue nodularity along the suture line suggesting recurrent neoplasm as previously discussed. These findings are stable from comparison PET CT 08/10/2017. 3. Previously described equivocal 5 mm nodule of the lingula is not identified on today's study. 4. No pathologic-appearing adenopathy. 5. Advanced emphysema with areas of pleural-parenchymal scarring and bilateral bronchial wall thickening suggesting associated bronchitis. The above report was generated using voice recognition software. It may contain grammatical, syntax or spelling errors. Electronically signed by: Brad Anderson M.D. 08/20/2017 12:15 PM Dictated Date/Time: 08/20/2017 12:01 PM Laboratory Results 08/20/17 10:07 Red Blood Count 5.32, Mean Corpuscular Volume 89.8, Mean Corpuscular Hemoglobin 28.8, Mean Corpuscular Hemoglobin Concent 32.0, Mean Platelet Volume 11.0, Neutrophils (%) (Auto) 77.7, Lymphocytes (%) (Auto) 15.8, Monocytes (%) (Auto) 5.9, Eosinophils (%) (Auto) 0.3, Basophils (%) (Auto) 0.1, Neutrophils # (Auto) 10.73, Lymphocytes # (Auto) 2.19, Monocytes # (Auto) 0.82, Eosinophils # (Auto) 0.04, Basophils # (Auto) 0.02 08/20/17 10:07 Test 08/20/17 09:46 08/20/17 09:49 08/20/17 09:55 08/20/17 10:07 Influenza Type A (RT-PCR) (NEG) Influenza Type A Antigen Neg for Influ A (NEG) Influenza Type B Antigen Neg for Influ B (NEG) Influenza Type B (RT-PCR) (NEG) Prothrombin Time 11.0 SECONDS (9.0-12.0) Prothromb Time International Ratio 1.0 (0.9-1.1) Activated Partial Thromboplast Time 23.8 SECONDS (21.0-31.0) Partial Thromboplastin Ratio 0.9 Bedside Hemoglobin 16.7 g/dl (12.0-16.0) Bedside Hematocrit 49 % (37-47) Bedside Sodium 138 mEq/L (135-144) Bedside Potassium 3.9 mEq/L (3.3-5.0) Bedside Chloride 90 mEq/L (101-112) Bedside Total CO2 > 40 mEq/l (24-31) Bedside Blood Urea Nitrogen 14 mg/dl (7-18) Bedside Creatinine 0.7 mg/dl (0.6-1.3) Bedside Glucose (other) 167 mg/dl (70-99) Bedside Ionized Calcium (David) 1.15 mmol/l (1.12-1.32) White Blood Count 13.83 K/uL (4.8-10.8) Red Blood Count 5.32 M/uL (4.2-5.4) Hemoglobin 15.3 g/dL (12.0-16.0) Hematocrit 47.8 % (37-47) Mean Corpuscular Volume 89.8 fL (80-100) Mean Corpuscular Hemoglobin 28.8 pg (25-34) Mean Corpuscular Hemoglobin Concent 32.0 g/dl (32-36) Platelet Count 252 K/uL (130-400) Mean Platelet Volume 11.0 fL (7.4-10.4) Neutrophils (%) (Auto) 77.7 % Lymphocytes (%) (Auto) 15.8 % Monocytes (%) (Auto) 5.9 % Eosinophils (%) (Auto) 0.3 % Basophils (%) (Auto) 0.1 % Neutrophils # (Auto) 10.73 K/uL (1.4-6.5) Lymphocytes # (Auto) 2.19 K/uL (1.2-3.4) Monocytes # (Auto) 0.82 K/uL (0.11-0.59) Eosinophils # (Auto) 0.04 K/uL (0-0.5) Basophils # (Auto) 0.02 K/uL (0-0.2) RDW Standard Deviation 41.9 fL (36.4-46.3) RDW Coefficient of Variation 12.8 % (11.5-14.5) Immature Granulocyte % (Auto) 0.2 % Immature Granulocyte # (Auto) 0.03 K/uL (0.00-0.02) Anion Gap 3.0 mmol/L (3-11) Est Creatinine Clear Calc Drug Dose 64.7 ml/min Estimated GFR () 123.7 Estimated GFR (Non- 106.7 BUN/Creatinine Ratio 24.3 (10-20) Calcium Level 8.5 mg/dl (8.5-10.1) Total Bilirubin 0.2 mg/dl (0.2-1) Aspartate Amino Transf (AST/SGOT) 155 U/L (15-37) Alanine Aminotransferase (ALT/SGPT) 116 U/L (12-78) Alkaline Phosphatase 75 U/L (45-117) Total Creatine Kinase 72 U/L (26-192) Creatine Kinase MB 2.5 ng/ml (0.5-3.6) Creatine Kinase MB Ratio 3.5 (0-3.0) Troponin I 0.021 ng/ml (0-0.045) Total Protein 7.3 gm/dl (6.4-8.2) Albumin 3.5 gm/dl (3.4-5.0) Globulin 3.8 gm/dl (2.5-4.0) Albumin/Globulin Ratio 0.9 (0.9-2) Chemistry Specimen Hemolysis Test 08/20/17 10:20 Labs reviewed by ED physician. Medications Administered Medications (Trade) Dose Ordered Sig/Steven Route Start Time Stop Time Status Last Admin Dose Admin Albuterol/ Ipratropium (Duoneb) 12 ml ONE ONCE INH 08/20/17 09:45 08/20/17 09:59 DC 08/20/17 09:40 12 ML Magnesium Sulfate (Magnesium Sulfate) 2 gm NOW STAT IV 08/20/17 09:32 08/20/17 09:59 DC 08/20/17 09:44 2 GM Sodium Chloride 1,000 ml @ 999 mls/hr Q1H1M STAT IV 08/20/17 09:46 08/20/17 10:46 DC 08/20/17 10:05 999 MLS/HR Piperacillin Sod/ Tazobactam Sod (Zosyn Iv) 4.5 gm NOW STAT IV 08/20/17 09:46 08/20/17 09:59 DC 08/20/17 10:11 4.5 GM Levofloxacin (Levaquin / D5W) 750 mg NOW STAT IV 08/20/17 09:46 08/20/17 09:59 DC 08/20/17 10:49 750 MG Morphine Sulfate (MoRPHine SULFATE INJ) 3 mg NOW STAT IV 08/20/17 10:35 08/20/17 10:37 DC 08/20/17 10:49 3 MG Ondansetron HCl (Zofran Inj) 4 mg NOW STAT IV 08/20/17 10:35 08/20/17 10:37 DC 08/20/17 10:49 4 MG Sodium Chloride 150 ml @ 999 mls/hr Q10M STAT IV 08/20/17 10:42 08/20/17 10:51 DC 08/20/17 10:57 999 MLS/HR ECG Indication: SOB/dyspnea Rate (beats per minute): 102 Rhythm: sinus tachycardia Findings: no acute ischemic change, no ectopy, other (old inferior and anterior infarcts) ED Course 0929: Past medical records reviewed. The patient was evaluated in room B2. A complete history and physical examination was performed. Respiratory was summoned to the room for additional treatment and care. 0932: Ordered Magnesium Sulfate 2 gm IV. 0945: Ordered Duoneb 12 ml INH. 0946: Ordered Levofloxacin 750 mg IV, Zosyn IV 4.5 gm IV, Sodium Chloride 1000 ml @ 999 mls/hr IV. 0956: I reevaluated the patient and she is resting. 1012: I reevaluated the patient and she is improving on BI PAP. 1030: I discussed the patients case with Fox Lackey Cardiothoracic PA-Galina. 1035: Ordered Zofran Inj 4 mg IV, Morphine Sulfate 3 mg IV. 1042: Ordered Sodium Chloride 150 ml @ 999 mls/hr IV. 1134: I reevaluated the patient and she is more alert. 1156: I discussed the patients case with Stephen Vinson. She is going to evaluate the patient for further treatment. 1200: The patient's family was updated on the treatment plan. The patient will be evaluated for further treatment. Medical Decision Differential diagnosis: Etiologies such as infections, reactive airway disease, pneumonia, pneumothorax , COPD, CHF, cardiac ischemia, pulmonary embolism, musculoskeletal, gastrointestinal, as well as others were entertained. This is a 57-year-old female who presents emergency department complaining of shortness of breath. The patient is critically ill and is falling asleep on examination. She was placed on BiPAP and given an hour-long breathing treatment. She was also given multiple doses of magnesium. An ABG was obtained which showed the patient to be in retention. She was sent for a CAT scan of the chest which did not show any evidence of a PE. I did discuss the case with the hospitalist service as well as the farmworker dairy who agreed to admit the patient. Medication Reconcilliation Current Medication List: was personally reviewed by me Blood Pressure Screening Patient's blood pressure: Normal blood pressure Blood pressure disposition: Did not require urgent referral Consults Time Called: 1020 Consulting Physician: Dylon Das PA-C Returned Call: 1030 I discussed the patients case with Dylon Das PA-C. Additional Consults: Time Called: 1150 Consulted Physician: Stephen Vinson Returned Call: 1156 Additional Comments: I discussed the patients case with Stephen Vinson. She is going to evaluate the patient for further treatment. Impression Primary Impression: Hypoxia Additional Impression: COPD exacerbation Critical Care I have personally spent greater than 125 minutes of critical care time in the direct management of this patient. This includes bedside care, interpretation of diagnostic studies, and testing, discussion with consultants, patient, and family members, and other required patient management activities. This 125 minutes is in excess of all separately billable procedures. Scribe Attestation The scribe's documentation has been prepared under my direction and personally reviewed by me in its entirety. I confirm that the note above accurately reflects all work, treatment, procedures, and medical decision making performed by me. Departure Information Dispostion Being Evaluated By Hospitalist Referrals Amanda Rey M.D. (PCP) Problem Qualifiers
[2017-08-20] MEDS ORDERED: ALBUT/IPRATROP 3MG/0.5MG NEB 3 ML VIAL INH ONE (09:45)
[2017-08-20] MEDS ORDERED: LEVAQUIN 750MG / 150ML D5W IV STA (09:46)
[2017-08-20] MEDS ORDERED: SODIUM CHLORIDE 0.9% 1000ML 1,000 ML IV STA (09:46)
[2017-08-20] MEDS ORDERED: PIPERACILLIN/TAZOBACTAM 4.5 GM/100ML D5W IV STA (09:46)
--- NOTE | 2017-08-20 09:59 | DIAGNOSTIC IMAGING REPORT ---
CHEST ONE VIEW PORTABLE HISTORY: 57 years-old Female Pt c/o SOB acute shortness of breath COMPARISON: Chest radiograph 03/02/2017, PET CT 08/10/2017 TECHNIQUE: Portable upright AP view of the chest FINDINGS: Cardiac silhouette is within normal limits. There is enlargement of the pulmonary arteries suggesting pulmonary arterial hypertension. Posterior vertebral changes of the right lower lobe are again seen with adjacent nodularity. Advanced and is evidence changes with areas of background interstitial coarsening. No pneumothorax or pleural effusion identified. The bones are grossly intact. IMPRESSION: 1. Emphysema without acute cardiopulmonary process. 2. Postsurgical changes of the right lower lobe with persistent adjacent nodularity. Please refer to PET/CT 08/10/2017 for further details. The above report was generated using voice recognition software. It may contain grammatical, syntax or spelling errors. Electronically signed by: Brad Anderson M.D. 08/20/2017 9:57 AM Dictated Date/Time: 08/20/2017 9:55 AM
[2017-08-20 10:08] LABS: ISTAT CARBON DIOXIDE > 40 mEq/l (24-31); ISTAT CHLORIDE 90 mEq/L (101-112); ISTAT CREATININE 0.7 mg/dl (0.6-1.3); ISTAT HEMATOCRIT 49 % (37-47); ISTAT HEMOGLOBIN 16.7 g/dl (12.0-16.0); ISTAT IONIZED CALCIUM 1.15 mmol/l (1.12-1.32); ISTAT SODIUM 138 mEq/L (135-144)
[2017-08-20] MEDS ORDERED: CHN5 PO (10:19)
[2017-08-20] MEDS ORDERED: AMOX500T PO (10:19)
[2017-08-20 10:23] LABS: ARTERIAL BLD GAS O2 SATURATION 99.9 % (90-95); ARTERIAL BLOOD GAS BASE EXCESS 8.4 mEq/L (-9-1.8); ARTERIAL BLOOD GAS HCO3 41 mmol/L (19-24); ARTERIAL BLOOD GAS PO2 466 mm/Hg (80-95); ARTERIAL BLOOD GAS pH 7.21 (7.35-7.45)
[2017-08-20 10:24] LABS: BASO % 0.1 %; BASO ABS # 0.02 K/uL (0-0.2); COMPLETE YES; EOS % 0.3 %; HEMATOCRIT 47.8 % (37-47); IG% 0.2 %; LYMPH % 15.8 %; LYMPH ABS # 2.19 K/uL (1.2-3.4); MEAN CELL VOLUME 89.8 fL (80-100); MEAN CORPUSCULAR HEMOGLOBIN 28.8 pg (25-34); MONO % 5.9 %; NEUT % 77.7 %; PLATELET COUNT 252 K/uL (130-400); RED BLOOD COUNT 5.32 M/uL (4.2-5.4); WHITE BLOOD COUNT 13.83 K/uL (4.8-10.8)
[2017-08-20 10:25] LABS: ALLEN TEST POS (POS); O2 ADMINISTRATION 15 L
[2017-08-20] MEDS ORDERED: OPTIRAY 320 IV PRN (10:30)
[2017-08-20] MEDS ORDERED: ONDANSETRON INJ 2 MG/ML 2 ML VIAL IV STA (10:35)
[2017-08-20] MEDS ORDERED: MoRPHine SULFATE 4 MG/ML 1 ML CARP\\VIAL IV STA (10:35)
[2017-08-20 10:42] LABS: PARTIAL THROMBOPLASTIN RATIO 0.9
[2017-08-20] MEDS ORDERED: SODIUM CHLORIDE 0.9% 150ML 150 ML IV STA (10:42)
[2017-08-20 10:59] LABS: ALB/GLOB RATIO 0.9 (0.9-2); BUN/CREATININE RATIO 24.3 (10-20); CALCIUM 8.5 mg/dl (8.5-10.1); CKMB/CK RATIO 3.5 (0-3.0); CREATININE 0.51 mg/dl (0.60-1.20); POTASSIUM 3.9 mmol/L (3.5-5.1)
--- NOTE | 2017-08-20 12:16 | DIAGNOSTIC IMAGING REPORT ---
(CHEST FOR PE) ANGIO WITH CT DOSE: 243.23 mGycm HISTORY: 57 years-old Female presents with acute shortness of breath with history of lung carcinoma. TECHNIQUE: Multiple CTA images of the chest were obtained after the intravenous administration of 90 mL Optiray 320. Coronal and sagittal MIPS were obtained from the axial data set and were submitted for review. A dose lowering technique was utilized adhering to the principles of ALARA. COMPARISON: Chest CT 07/30/2017, PET CT 08/10/2017 FINDINGS: CTA: Heart is normal in size. Coronary arterial calcifications are noted. Moderate atherosclerotic plaquing of the thoracic aorta and origin of the left subclavian artery. Image great vessels are patent. No aortic dissection or aneurysm the pulmonary chill tree is opacified the level of the subsegmental branches and demonstrates no focal filling defects to suggest pulmonary thromboembolic disease. CT CHEST: No dominant thyroid nodule or pathologic adenopathy. There is no pneumothorax or pleural effusion. Advanced bullous centrilobular emphysematous changes are noted with areas of interstitial coarsening and pleural parenchymal scarring. Postsurgical changes of apparent prior wedge resection of the right lower lobe with nodularity again seen along the suture material measuring up to 2.0 x 3.4 cm on image 133 of series 4 with area of more medial nodularity measuring up to 1.8 x 1.1 cm. These findings overall appears stable from study dated 08/10/2017. Additional areas of nodularity are present within the right lower lobe as previously discussed. Moderate bronchial wall thickening bilaterally, greatest within the lower lobes. Previously described 5 mm nodule within the lingula is not clearly seen on today's study. No new suspicious pulmonary nodules identified. Central airways are patent. Imaged upper abdominal structures are unremarkable. Tissues are within normal limits. The bones appear intact without suspicious lytic or blastic lesions identified. IMPRESSION: 1. No acute cardiopulmonary process, specifically no acute aortic pathology or evidence of pulmonary thromboembolic disease. 2. Prior wedge resection of the right lower lobe with persistent multifocal soft tissue nodularity along the suture line suggesting recurrent neoplasm as previously discussed. These findings are stable from comparison PET CT 08/10/2017. 3. Previously described equivocal 5 mm nodule of the lingula is not identified on today's study. 4. No pathologic-appearing adenopathy. 5. Advanced emphysema with areas of pleural-parenchymal scarring and bilateral bronchial wall thickening suggesting associated bronchitis. The above report was generated using voice recognition software. It may contain grammatical, syntax or spelling errors. Electronically signed by: Brad Anderson M.D. 08/20/2017 12:15 PM Dictated Date/Time: 08/20/2017 12:01 PM
[2017-08-20] MEDS ORDERED: ACETAMINOPHEN 325 MG TAB PO PRN (12:30)
[2017-08-20] MEDS ORDERED: ONDANSETRON INJ 2 MG/ML 2 ML VIAL IV PRN (12:30)
[2017-08-20] MEDS ORDERED: ENOXAPARIN 40 MG/0.4 ML SYR SQ SCH (12:30)
[2017-08-20] MEDS ORDERED: PRED10TA PO (13:33)
[2017-08-20 13:38] LABS: ARTERIAL BLD GAS O2 SATURATION 95.3 % (90-95); ARTERIAL BLOOD GAS BASE EXCESS 5.7 mEq/L (-9-1.8); ARTERIAL BLOOD GAS HCO3 36 mmol/L (19-24); ARTERIAL BLOOD GAS PO2 90 mm/Hg (80-95); ARTERIAL BLOOD GAS pH 7.23 (7.35-7.45)
[2017-08-20 13:40] LABS: ALLEN TEST POS (POS)
[2017-08-20 13:42] LABS: O2 ADMINISTRATION 40%
--- NOTE | 2017-08-20 15:21 | History and Physical ---
History & Physical Date & Time of Service: Aug 20, 2017 ~ 12:00 Chief Complaint: Respiratory Failure Primary Care Physician: Amanda Rey M.D. History of Present Illness 57 year old female who presents to the ED with shortness of breath. Patient reports her symptoms developed almost one week ago. She reports she typically has shortness of breath with exertion however it has been worsening and she has had shortness of breath with rest as well. She chronically wears 1L of oxygen but increased it to 2L over the past couple of days. She reports symptoms of "chest cold" with rhinorrhea and sore throat. She reports a chronic dry at baseline that is worse as well and continued to be non productive. She felt she has had chills and felt like she had a fever but did not check her temperature. She has had progressive worsening generalized weakness to the point where she could not get off of the couch this morning. EMS was then called. Family is at the bedside and report that they did not notice any confusion or altered mental status. She denies chest pain and palpitations. She reports a couple episodes of diarrhea and denies BRBPR and dark tarry stools. She reports she has had a poor appetite but denied abdominal pain, nausea, and vomiting. No urinary symptoms. She called her web coordinator early in the week with the aforementioned complaints and he placed her on Augmentin and tapering steroid pack. Noted that patient is on chronic Prednisone 10mg daily. In the ED, patient was somnolent and ABG was obtained that showed respiratory acidosis. She was placed on Bipap with improvement in her symptoms. She was also given IV solumedrol, nebs, Mg+, Zosyn, Levaquin, Zofran, and IVF. Past Medical/Surgical History Medical Problems: (1) Adenocarcinoma, lung Permanent Comment: s/p VATS with wedge resection 12/2015 Status: Chronic (2) COPD, severe Status: Chronic Surgical Problems: (1) H/O tubal ligation Status: Chronic (2) S/P partial lobectomy of lung Status: Resolved Family History FH: lung cancer MOTHER Social History Smoking Status: Current Every Day Smoker Alcohol Use: none Marital Status: Housing status: lives with family Immunizations History of Influenza Vaccine: Yes Influenza Vaccine Date: Aug 22, 2016 History of Tetanus Vaccine?: Yes Tetanus Immunization Date: Aug 15, 2015 History of Pneumococcal: Yes Pneumococcal Date: Feb 15, 2009 Allergies Coded Allergies: No Known Allergies (Unverified , 03/02/17) Home Medications Scheduled Amoxicillin & Pot Clavulanate (Augmentin 500MG), 500 MG PO Q12 Budesonide/Formoterol Fumarate (Symbicort 160/4.5 Inhaler), 2 PUFFS INH BID Omeprazole (Prilosec), 20 MG PO DAILYBB Prednisone (Prednisone), 10 MG PO DIRECTED Prednisone Tab (Prednisone), 10 MG PO DAILY Tiotropium Jewett (Spiriva Handihaler), 1 CAP INH DAILY Scheduled PRN Albuterol Hfa (Ventolin Hfa), 2 PUFFS INH QID PRN for SOB/Wheezing Ipratropium-Albuterol (Duoneb), 1 TREATMENT INH TID PRN for SOB/Wheezing Review of Systems ROS per HPI, all other systems reviewed and negative Physical Exam Vital Signs Date Time Temp Pulse Resp B/P (MAP) Pulse Ox O2 Delivery O2 Flow Rate FiO2 08/20/17 13:18 79 20 88/57 95 08/20/17 12:49 82 08/20/17 12:00 89 22 81/55 89 CPAP 40 08/20/17 11:00 88 87/56 96 CPAP 40 08/20/17 10:46 89 110/62 97 CPAP 40 08/20/17 10:40 89 100 08/20/17 10:39 88 99/62 99 CPAP 45 08/20/17 10:15 96 95/72 98 CPAP 08/20/17 10:00 100 94/70 98 CPAP 100 08/20/17 09:45 104 98 100 08/20/17 09:45 103 20 99 BiPAP/CPAP 80 08/20/17 09:40 97 CPAP 100 08/20/17 09:40 96 CPAP 15.0 100 08/20/17 09:40 36.5 118 22 153/85 98 CPAP 100 08/20/17 09:40 97 CPAP 15.0 100 08/20/17 09:35 103 99 80 08/20/17 09:34 98 08/20/17 09:32 153/85 General Appearance: no apparent distress, + cachetic Head: normocephalic, atraumatic Eyes: normal inspection, PERRL, EOMI, sclerae normal ENT: hearing grossly normal, + pertinent finding (dry mucous membranes) Neck: supple, no JVD, trachea midline Respiratory/Chest: no respiratory distress, + decreased breath sounds (poor air entry noted throughout all lung [place] ), + wheezing (faint, end expiratory ), + pertinent finding (on BiPap 10/ 40%) Cardiovascular: regular rate, rhythm, no edema, normal peripheral pulses Abdomen/GI: normal bowel sounds, non tender, soft, no organomegaly Extremities/Musculoskelatal: normal inspection, no calf tenderness Neurologic/Psych: no motor/sensory deficits, alert, normal mood/affect, oriented x 3 Skin: normal color, warm/dry Diagnostics Laboratory Results Results Past 24 Hours Test 08/20/17 09:46 08/20/17 09:49 08/20/17 09:55 08/20/17 10:07 Range/Units Influenza Type A (RT-PCR) NEG Influenza Type A Antigen Neg for Influ A NEG Influenza Type B Antigen Neg for Influ B NEG Influenza Type B (RT-PCR) NEG Prothrombin Time 11.0 9.0-12.0 SECONDS Prothromb Time International Ratio 1.0 0.9-1.1 Activated Partial Thromboplast Time 23.8 21.0-31.0 SECONDS Partial Thromboplastin Ratio 0.9 Bedside Hemoglobin 16.7 12.0-16.0 g/dl Bedside Hematocrit 49 37-47 % Bedside Sodium 138 135-144 mEq/L Bedside Potassium 3.9 3.3-5.0 mEq/L Bedside Chloride 90 101-112 mEq/L Bedside Total CO2 > 40 24-31 mEq/l Anion Gap 11.0 3.0 3-11 mmol/L Bedside Blood Urea Nitrogen 14 7-18 mg/dl Bedside Creatinine 0.7 0.6-1.3 mg/dl Bedside Glucose (other) 167 70-99 mg/dl Bedside Ionized Calcium (David) 1.15 1.12-1.32 mmol/l White Blood Count 13.83 4.8-10.8 K/uL Red Blood Count 5.32 4.2-5.4 M/uL Hemoglobin 15.3 12.0-16.0 g/dL Hematocrit 47.8 37-47 % Mean Corpuscular Volume 89.8 80-100 fL Mean Corpuscular Hemoglobin 28.8 25-34 pg Mean Corpuscular Hemoglobin Concent 32.0 32-36 g/dl Platelet Count 252 130-400 K/uL Mean Platelet Volume 11.0 7.4-10.4 fL Neutrophils (%) (Auto) 77.7 % Lymphocytes (%) (Auto) 15.8 % Monocytes (%) (Auto) 5.9 % Eosinophils (%) (Auto) 0.3 % Basophils (%) (Auto) 0.1 % Neutrophils # (Auto) 10.73 1.4-6.5 K/uL Lymphocytes # (Auto) 2.19 1.2-3.4 K/uL Monocytes # (Auto) 0.82 0.11-0.59 K/uL Eosinophils # (Auto) 0.04 0-0.5 K/uL Basophils # (Auto) 0.02 0-0.2 K/uL RDW Standard Deviation 41.9 36.4-46.3 fL RDW Coefficient of Variation 12.8 11.5-14.5 % Immature Granulocyte % (Auto) 0.2 % Immature Granulocyte # (Auto) 0.03 0.00-0.02 K/uL Arterial Blood pH 7.21 7.35-7.45 Arterial Blood Partial Pressure CO2 104 35-46 mmHg Arterial Blood Partial Pressure O2 466 80-95 mm/Hg Arterial Blood HCO3 41 19-24 mmol/L Arterial Blood Oxygen Saturation 99.9 90-95 % Arterial Blood Base Excess 8.4 -9-1.8 mEq/L Arterial Blood Gas Delivery 15 L Luis Enrique Test POS POS Sodium Level 136 136-145 mmol/L Potassium Level 3.9 3.5-5.1 mmol/L Chloride Level 95 98-107 mmol/L Carbon Dioxide Level 38 21-32 mmol/L Blood Urea Nitrogen 12 7-18 mg/dl Creatinine 0.51 0.60-1.20 mg/dl Est Creatinine Clear Calc Drug Dose 64.7 ml/min Estimated GFR () 123.7 Estimated GFR (Non- 106.7 BUN/Creatinine Ratio 24.3 10-20 Random Glucose 165 70-99 mg/dl Calcium Level 8.5 8.5-10.1 mg/dl Total Bilirubin 0.2 0.2-1 mg/dl Aspartate Amino Transf (AST/SGOT) 155 15-37 U/L Alanine Aminotransferase (ALT/SGPT) 116 12-78 U/L Alkaline Phosphatase 75 45-117 U/L Total Creatine Kinase 72 26-192 U/L Creatine Kinase MB 2.5 0.5-3.6 ng/ml Creatine Kinase MB Ratio 3.5 0-3.0 Troponin I 0.021 0-0.045 ng/ml Total Protein 7.3 6.4-8.2 gm/dl Albumin 3.5 3.4-5.0 gm/dl Globulin 3.8 2.5-4.0 gm/dl Albumin/Globulin Ratio 0.9 0.9-2 Chemistry Specimen Hemolysis Test 08/20/17 10:20 08/20/17 13:26 Range/Units Microbiology Results 08/20/17 Blood Culture, Received Pending 08/20/17 Blood Culture, Received Pending Diagnostic Radiology CXR IMPRESSION: 1. Emphysema without acute cardiopulmonary process. 2. Postsurgical changes of the right lower lobe with persistent adjacent nodularity. Please refer to PET/CT 08/10/2017 for further details. CTA CHEST IMPRESSION: 1. No acute cardiopulmonary process, specifically no acute aortic pathology or evidence of pulmonary thromboembolic disease. 2. Prior wedge resection of the right lower lobe with persistent multifocal soft tissue nodularity along the suture line suggesting recurrent neoplasm as previously discussed. These findings are stable from comparison PET CT 08/10/2017. 3. Previously described equivocal 5 mm nodule of the lingula is not identified on today's study. 4. No pathologic-appearing adenopathy. 5. Advanced emphysema with areas of pleural-parenchymal scarring and bilateral bronchial wall thickening suggesting associated bronchitis. Impression Assessment and Plan ACUTE ON CHRONIC HYPERCAPNIC, HYPOXIC RESPIRATORY FAILURE DUE TO COPD EXACERBATION - admit to ICU - patient presenting with increasing shortness of breath and non productive cough x 7 days; in the ED, patient was found to have severe respiratory acidosis and was placed on BiPap - initial ABG: ph 7.21, CO2 104, O2 466, HCO3 36 - likely has some component of chronic CO2 retention - noted last ABG 12/2015 CO2 was 58 - no infiltrate on CXR; ? if exacerbation was triggered by bronchitis - s/p Zosyn and Levaquin in the ED; will continue with Levaquin only for now - does have mild leukocytosis however is on chronic steroids with recent use of taper - continue with BiPap; follow up ABG - around the clock nebs and steroids as per ICU; continue home inhaled corticosteroid - noted on chronic oxygen (1L) and steroid (prednisone 10mg) therapy at home - case discussed with Den Hayden PA-C LUNG ADENOCARCINOMA - s/p VATS with wedge resection 12/2015 - recent CT scan showed reoccurrence of disease and patient underwent PET-CT with the following findings: 1. Advanced emphysema and postoperative change from right lower lobe resection. 2. Again seen are foci of lobulated/nodular soft tissue in the right lower lobe along the resection margin. This has increased in size over prior examinations and is demonstrably FDG avid. This should be considered recurrent neoplasm until proven otherwise. 3. Additional subcentimeter nodules in the right lower lobe have also increased from previous. These are not markedly FDG avid, are too small for PET characterization, and are also concerning for disease. 4. There is an equivocal 5 mm focus of nodularity in the lingula which appears mildly FDG avid. This is of indeterminant significance and continued attention at follow-up is recommended. 5. No FDG avid mediastinal or hilar adenopathy is seen. 6. There is no evidence of extrathoracic metastatic disease. - patient follows with Dr. Costa TOBACCO ABUSE - despite her COPD and lung cancer, patient continues to smoke - she was counseled regarding tobacco cessation DVT PROPHYLAXIS - SQ Lovenox CODE STATUS - Patient is a full code as per my discussion with her. DISPO - In my clinical judgment this beneficiary meets acute admission criteria, established by [facility], that includes being hospitalized through two midnights. Addendum, Attending Physician Dr. Benito: I agree with RIDGE Richards with the assessment and plan as above and would like to comment that this is a 57 year F with respiratory distress likley due to acute COPD exacerbation with retention of CO2 and respiratory acidosis with blood gas pH around 7.2. Patient's breathing may have been also affected by postoperative change from right lower lobe resection for history of lung cancer. For these reasons, patient is high risk for intubation. Patient has not been intubated before. Patient was seen and examined at bedside in the Emergency room on BIPAPShe agrees to full code status. Patient admitted from Emergency room to the ICU. Will appreciate further recommendations and management by ICU staff and ICU physician. Patient seen and examined again in the ICU soon after transfer. She is seen breathing comfortably on nasal cannula with improved air entry. Would likely from BIPAP at bedside as needed. Would continue IV Levofloxacin for COPD as well as duonebs and IV solumedrol. VTE Prophylaxis VTE Risk Assessment Done? Y/N: Yes Risk Level: Moderate
--- NOTE | 2017-08-20 16:07 | Critical Care Consultation ---
Critical Care Consultation Date of Consultation: Aug 20, 2017. Attending Physician: Yandel Benito M.D. Reason for Consultation: Acute hypercapnic respiratory failure. History of Present Illness I personally examined this patient, reviewed all clinical and laboratory data, interpreted the x-ray and formulated further plan of care. In summary, patient is a 57-year-old female with extensive smoking history who developed sore throat, running nose, chills and dyspnea 6-7 days ago. She was started on steroids and Augmentin on Thursday which is 4 days ago. Initially, her symptoms have improved. Of note, her also developed upper respiratory tract infection associated with runny nose, sore throat, congested chest. Unfortunately, today patient developed progressively worsening shortness of breath associated with generalized weakness. She presented to emergency room. Initial ABGs revealed significant hypercapnia with pH of 7.2 and the PCO2 of 104. Patient was treated with DuoNeb's, levofloxacin, Zosyn, BiPAP. She was transferred critically ill to the vascular intensive care unit for further management. 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 It was T1 2 more measuring about 2 cm. Negative PET scan from July 2016. PET scan from August 2017 revealed: -Advanced emphysema and postoperative change from right lower lobe resection -Foci of lobulated/nodular soft tissue in the right lower lobe along the resection margin. It has increased in size and demonstrated FDG avidity. They should be considered recurrent neoplasm until proven otherwise. -No mid he has no oral hilar adenopathy. -No evidence of extrathoracic metastatic disease. Family History FH: lung cancer MOTHER Family history significant for chronic obstructive lung disease and lung cancer. Social History Patient has been smoking 1 pack per day. Recently she cut down to half pack per day. She hasn't smoked for the last week or so. 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 Smoking Status: Never Smoker Alcohol Use: none Marital Status: Housing Status: lives with significant other Allergies Coded Allergies: No Known Allergies (Unverified , 03/02/17) Home Medications Scheduled Amoxicillin & Pot Clavulanate (Augmentin 500MG), 500 MG PO Q12 Budesonide/Formoterol Fumarate (Symbicort 160/4.5 Inhaler), 2 PUFFS INH BID Omeprazole (Prilosec), 20 MG PO DAILYBB Prednisone (Prednisone), 10 MG PO DIRECTED Prednisone Tab (Prednisone), 10 MG PO DAILY Tiotropium [place] (Spiriva Handihaler), 1 CAP INH DAILY Scheduled PRN Albuterol Hfa (Ventolin Hfa), 2 PUFFS INH QID PRN for SOB/Wheezing Ipratropium-Albuterol (Duoneb), 1 TREATMENT INH TID PRN for SOB/Wheezing Current Inpatient Medications Current Inpatient Medications Medications (Trade) Dose Ordered Sig/Steven Route Start Time Stop Time Status Last Admin Dose Admin Ioversol (Optiray 320) 100 ml UD PRN IV 08/20/17 10:30 08/24/17 10:29 Sodium Chloride 1,000 ml @ 80 mls/hr [id number] IV 08/20/17 12:29 09/19/17 12:28 Acetaminophen (Tylenol Tab) 650 mg Q4H PRN PO 08/20/17 12:30 09/19/17 12:29 Ondansetron HCl (Zofran Inj) 4 mg Q6H PRN IV 08/20/17 12:30 09/19/17 12:29 Levofloxacin 500 mg/Prmx 100 ml @ 100 mls/hr DAILY@1300 IV 08/21/17 13:00 08/26/17 13:59 Budesonide/ Formoterol Fumarate (Symbicort 160/ 4.5 Inh) 2 puffs BID INH 08/20/17 21:00 09/19/17 20:59 Pantoprazole Sodium (Protonix Tab) 40 mg QAM PO 08/21/17 09:00 09/20/17 08:59 Heparin Sodium (Porcine) (Heparin Sq 5000 Unit/0.5ml) 5,000 unit Q12 SQ 08/20/17 21:00 09/19/17 20:59 Methylprednisolone Sodium Succinate 125 mg/Syringe 2 ml @ 1.5 mls/min Q8H IV 08/20/17 16:00 09/19/17 15:59 Ipratropium [place] (Atrovent 0.02% 0.5MG/2.5ML Neb) 0.5 mg Q6R INH 08/20/17 21:00 09/19/17 20:59 Levalbuterol (Xopenex 1.25MG/ 0.5ML Neb) 1.25 mg Q6R INH 08/20/17 21:00 09/19/17 20:59 Review of Systems Constitutional: + fever, + chills, + weakness, + fatigue ENT: + sore throat Respiratory: + cough, + wheezing, + shortness of breath, + dyspnea on exertion , + dyspnea at rest Physical Exam Date Time Temp Pulse Resp B/P (MAP) Pulse Ox O2 Delivery O2 Flow Rate FiO2 08/20/17 13:18 79 20 88/57 95 08/20/17 12:49 82 08/20/17 12:00 89 22 81/55 89 CPAP 40 08/20/17 11:00 88 87/56 96 CPAP 40 08/20/17 10:46 89 110/62 97 CPAP 40 08/20/17 10:40 89 100 08/20/17 10:39 88 99/62 99 CPAP 45 08/20/17 10:15 96 95/72 98 CPAP 08/20/17 10:00 100 94/70 98 CPAP 100 08/20/17 09:45 104 98 100 08/20/17 09:45 103 20 99 BiPAP/CPAP 80 08/20/17 09:40 97 CPAP 100 08/20/17 09:40 96 CPAP 15.0 100 08/20/17 09:40 36.5 118 22 153/85 98 CPAP 100 08/20/17 09:40 97 CPAP 15.0 100 08/20/17 09:35 103 99 80 08/20/17 09:34 98 08/20/17 09:32 153/85 Middle age female who is cachectic and looks older than stated age, off BiPAP with mildly increased work of breathing. Head is atraumatic, normocephalic, pupils were equal, round and reactive to light. Neck was supple, no JVD, no carotid bruit Lungs examination revealed diffusely diminished air movement, scattered wheezing , no crackles. Heart was beating regularly, normal S1, S2, no S3. Abdomen is soft and nontender, no hepatosplenomegaly, no palpable masses. Lower extremities were warm, well-perfused, no edema, no calf tenderness. Neurologically, alert and oriented 3, no motor or sensory deficits. Psychiatric, appropriate affect. Laboratory Results Last 24 Hours Test 08/20/17 09:46 08/20/17 09:49 08/20/17 09:55 08/20/17 10:07 Influenza Type A (RT-PCR) Influenza Type A Antigen Neg for Influ A Influenza Type B Antigen Neg for Influ B Influenza Type B (RT-PCR) Prothrombin Time 11.0 SECONDS Prothromb Time International Ratio 1.0 Activated Partial Thromboplast Time 23.8 SECONDS Partial Thromboplastin Ratio 0.9 Bedside Hemoglobin 16.7 g/dl Bedside Hematocrit 49 % Bedside Sodium 138 mEq/L Bedside Potassium 3.9 mEq/L Bedside Chloride 90 mEq/L Bedside Total CO2 > 40 mEq/l Anion Gap 11.0 mmol/L 3.0 mmol/L Bedside Blood Urea Nitrogen 14 mg/dl Bedside Creatinine 0.7 mg/dl Bedside Glucose (other) 167 mg/dl Bedside Ionized Calcium (David) 1.15 mmol/l White Blood Count 13.83 K/uL Red Blood Count 5.32 M/uL Hemoglobin 15.3 g/dL Hematocrit 47.8 % Mean Corpuscular Volume 89.8 fL Mean Corpuscular Hemoglobin 28.8 pg Mean Corpuscular Hemoglobin Concent 32.0 g/dl Platelet Count 252 K/uL Mean Platelet Volume 11.0 fL Neutrophils (%) (Auto) 77.7 % Lymphocytes (%) (Auto) 15.8 % Monocytes (%) (Auto) 5.9 % Eosinophils (%) (Auto) 0.3 % Basophils (%) (Auto) 0.1 % Neutrophils # (Auto) 10.73 K/uL Lymphocytes # (Auto) 2.19 K/uL Monocytes # (Auto) 0.82 K/uL Eosinophils # (Auto) 0.04 K/uL Basophils # (Auto) 0.02 K/uL RDW Standard Deviation 41.9 fL RDW Coefficient of Variation 12.8 % Immature Granulocyte % (Auto) 0.2 % Immature Granulocyte # (Auto) 0.03 K/uL Arterial Blood pH 7.21 Arterial Blood Partial Pressure CO2 104 mmHg Arterial Blood Partial Pressure O2 466 mm/Hg Arterial Blood HCO3 41 mmol/L Arterial Blood Oxygen Saturation 99.9 % Arterial Blood Base Excess 8.4 mEq/L Arterial Blood Gas Delivery 15 L Luis Enrique Test POS Sodium Level 136 mmol/L Potassium Level 3.9 mmol/L Chloride Level 95 mmol/L Carbon Dioxide Level 38 mmol/L Blood Urea Nitrogen 12 mg/dl Creatinine 0.51 mg/dl Est Creatinine Clear Calc Drug Dose 64.7 ml/min Estimated GFR () 123.7 Estimated GFR (Non- 106.7 BUN/Creatinine Ratio 24.3 Random Glucose 165 mg/dl Calcium Level 8.5 mg/dl Total Bilirubin 0.2 mg/dl Aspartate Amino Transf (AST/SGOT) 155 U/L Alanine Aminotransferase (ALT/SGPT) 116 U/L Alkaline Phosphatase 75 U/L Total Creatine Kinase 72 U/L Creatine Kinase MB 2.5 ng/ml Creatine Kinase MB Ratio 3.5 Troponin I 0.021 ng/ml Total Protein 7.3 gm/dl Albumin 3.5 gm/dl Globulin 3.8 gm/dl Albumin/Globulin Ratio 0.9 Chemistry Specimen Hemolysis Test 08/20/17 10:20 08/20/17 13:26 Arterial Blood pH 7.23 Arterial Blood Partial Pressure CO2 89 mmHg Arterial Blood Partial Pressure O2 90 mm/Hg Arterial Blood HCO3 36 mmol/L Arterial Blood Oxygen Saturation 95.3 % Arterial Blood Base Excess 5.7 mEq/L Arterial Blood Gas Delivery 40% Luis Enrique Test POS Assessment & Plan 1. Acute hypercapnic respiratory failure secondary to COPD exacerbation. We will treat COPD exacerbation aggressively, uses a BiPAP on an as needed basis, follow ABGs. 2. COPD exacerbation likely from viral infection. We'll initiate IV Solu- Medrol, DuoNeb's, azithromycin. 3. Hemodynamics are acceptable, marginal hypotension. We will continue with gentle IV fluid administration. 4. Recurrence of malignancy. A CT scan of the chest revealed advanced emphysema, changes after right lower lobe wedge resection, multifocal nodularity suggestive for recurrent malignancy which is new when compared to PET scan in July 2016. We'll obtain pulmonary consultation. 5. ID: No obvious bacterial infection. We will discontinue antibiotics. Leukocytosis is likely related to steroid use. 6. Renal function is adequate. Increased bicarbonate secondary to chronic compensation to hypercarbia. 7. Increased hematocrit likely either to hemoconcentration or polycythemia related to chronic hypoxemia. 8. Heparin for DVT prophylaxis. I spent total 31 minutes of critical care time involved in managing this patient. I also discussed patient's clinical condition and management plan with patient's has been at the bedside.
[2017-08-20] MEDS: METHYLPREDNISOLONE IV 125 MG in SYRINGE 0 ML IV SCH (17:11)
[2017-08-20] MEDS: SODIUM CHLORIDE 0.9% 1000ML 1,000 ML IV SCH (17:12)
[2017-08-20] MEDS ORDERED: INFLUENZA VIRUS QUAD VACCINE 0.5 ML SYR IM. ONE (19:15)
[2017-08-20] MEDS ORDERED: INFLUENZA ADMINISTRATION CHARGE ONE (19:15)
--- NOTE | 2017-08-20 20:59 | PULMONARY CONSULTATION ---
DATE OF CONSULTATION: 08/20/2017 TIME: 6:15 p.m. REPORT OF CONSULTATION: The patient was seen in room #104. She is a 57-year-old female who has severe COPD, which is primarily emphysema. She also has a history of lung CA. She had a video-assisted thoracoscopy with wedge resection in early 2015 for lung cancer. In the Fall of 2015, she was hospitalized in [place], [place] and then later on at [facility] with exacerbation of COPD. She has had numerous exacerbations over the past year, which have been treated as an outpatient. The patient called me on the phone 3 days ago. She complained that she had caught colds over the weekend. She had some chills and sweats. She had an increased cough. There was some mucus. There was no hemoptysis. I ordered Augmentin and prednisone for her. This morning, she was at home and apparently was much more lethargic than normal. Her had been at work. He was a mold shifter worker and was unaware of this. Her son came over and he apparently called 911. The patient was brought to the Emergency Room and was found to be in respiratory failure. Her blood gases were severely abnormal. She apparently was lethargic. She is now more awake than she had been earlier. She was on BiPAP for a few hours. It is not clear exactly how many hours she was on the BiPAP. She states she tolerated that pretty well. Sometime this afternoon after the patient was in the ICU, she got up and went to the commode. Soon after that, her saturations went down to 54%. She did not have her oxygen on at that time. Her cough has actually lessened from what it was a few days ago. Her had a cold preceding this event and he thinks that she may have caught his respiratory illness. The patient has been a very long-term smoker. She has not been able to quit despite numerous attempts with many interventions. She did state she has not smoked for about 2 days. 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 PAST MEDICAL HISTORY: 1. Adenocarcinoma of the lung. 2. COPD. 3. Chronic rhinitis. 4. Gastroesophageal reflux. 5. Nicotine dependence. 6. Prior pneumonia. PAST SURGICAL HISTORY: 1. Colposcopy with colonization. 2. Laparoscopy. 3. Video-assisted thoracoscopy with, I believe wedge resection. FAMILY HISTORY: Positive for emphysema and lung cancer. MEDICATIONS AT HOME: 1. Albuterol HFA. 2. Augmentin. 3. Symbicort. 4. DuoNebs. 5. Omeprazole. 6. Prednisone. 7. Spiriva. ALLERGIES: No known allergies. REVIEW OF SYSTEMS: The patient is very weak. She has been lethargic. She has no appetite. She is not having any pain. She had been having constipation, but she states that when she was on the floor of her house and could not get up today, she was incontinent of stool. The remainder of the review of systems is negative except as noted above. Ten systems reviewed. PHYSICAL EXAMINATION: GENERAL: The patient is a pleasant 57-year-old who was cooperative. She was awake and arousable. She looked more lethargic than is normal for her. The patient weighs approximately 70 pounds. HEENT: Essentially unremarkable. There was no evidence of thrush at present. No lymphadenopathy was noted. HEART: Heart rate is 90 per minute. The rhythm is regular. Blood pressure is 128/68. LUNGS: Auscultation of the lung [place] revealed severely decreased breath sounds bilaterally. Her respiratory rate was 22 breaths per minute. Oxygen saturation is 92% on 1.5 liter nasal cannula. ABDOMEN: Soft. Bowel sounds were normal. There was no tenderness to palpation or masses. EXTREMITIES: Showed no cyanosis, clubbing or edema. IMAGING DATA: The patient had a CAT scan of the chest done today. There is evidence of prior right lower lobe wedge resection. She has soft tissue nodularity along the suture line suggesting recurrent neoplasm. She recently had a PET scan that was very FDG avid in this area. Severe emphysema was noted. There was pleural parenchymal scarring. The patient had an arterial blood gas at 10:00 a.m. showing a pH of 7.21 with a pCO2 of 104 and pO2 of 466. This was done with 15 liters of oxygen. Repeat blood gas at 1:26 p.m. showed a pH of 7.23 with a pCO2 of 89 and a pO2 of 90 done on 40% oxygen. LABORATORY DATA: White count is 13.83. Hemoglobin 15.3. Platelets are 252,000. Coags were normal. Electrolytes show sodium 136, potassium 3.9, chloride 95, bicarbonate 38. The BUN is 12 with a creatinine of 0.51. AST is elevated at 155, ALT is elevated at 116, bilirubin was 0.2, alkaline phosphatase was 75. Troponin was normal. Total protein was 7.3 with albumin 3.5. Flu test was negative. IMPRESSION: 1. Respiratory failure - acute on chronic with hypoxia and hypercarbia. 2. Chronic obstructive pulmonary disease with exacerbation. 3. Emphysema. 4. Lung cancer with probable recurrence. 5. Elevated liver function tests. COMMENTS AND RECOMMENDATIONS: The patient has severe respiratory failure as noted. Her was present during this evaluation. We had a long discussion regarding the options for code status. They are going to talk it over. Unfortunately, the patient's 47-year-old brother approximately 2 weeks ago and she had been on life support. She understands what they are. We discussed the fact that she has very severe lung disease. She also has a malignancy that appears to have recurred. I explained to her, I felt there was a significant risk if she would be on the ventilator that she might have difficulty getting off. She and her are going to discuss what their ultimate decision was. I believe she still needs the BiPAP at night. She may need p.r.n. during the day. We may need to get her BiPAP for home. She is on levofloxacin. She is on the Symbicort as she usually takes. She is on levalbuterol and ipratropium every 6 hours. She is on methylprednisolone high dose at 125 mg every 8 hours. Hopefully, that can be cut back as of tomorrow. I agree with all of the above. The patient may need an ultrasound of her liver in light of the elevated liver function test. It would not be out of the realm of possibility that she could have a liver metastasis. The patient's presented me with papers for family leave, which I did fill out for him. I believe the patient's prognosis is poor.
[2017-08-20] MEDS ORDERED: LEVALBUTEROL/IPRATROPIUM NEB INH SCH (21:00)
[2017-08-20] MEDS: BUDESONIDE/FORMOTEROL FUMARATE 160/4.5 60 PUFFS/INHALER INH SCH (21:18)
[2017-08-20] MEDS: HEPARIN SOD 5000 UNIT/0.5 ML CARP SQ SCH (21:19)
[2017-08-20] MEDS: LEVALBUTEROL 1.25MG/0.5ML NEB INH SCH (23:45)
[2017-08-20] MEDS: IPRATROPIUM BROMIDE NEB SOLN 0.02% 2.5 ML VIAL INH SCH (23:45)
[2017-08-21] VITALS (15 sets, daily range): BP systolic 95–155; BP diastolic 59–102; PULSE 63–106; TEMP 36.8–37.1; O2SAT 93–100
[2017-08-21] MEDS: METHYLPREDNISOLONE IV 125 MG in SYRINGE 0 ML IV SCH ×2 (00:05→08:01)
[2017-08-21] MEDS: IPRATROPIUM BROMIDE NEB SOLN 0.02% 2.5 ML VIAL INH SCH ×3 (02:25→19:53)
[2017-08-21] MEDS: LEVALBUTEROL 1.25MG/0.5ML NEB INH SCH ×3 (02:25→19:52)
[2017-08-21] MEDS: SODIUM CHLORIDE 0.9% 1000ML 1,000 ML IV SCH (03:14)
[2017-08-21 06:17] LABS: BASO % 0.2 %; BASO ABS # 0.01 K/uL (0-0.2); COMPLETE YES; HEMATOCRIT 41.4 % (37-47); IG% 0.2 %; LYMPH % 18.1 %; LYMPH ABS # 0.84 K/uL (1.2-3.4); MEAN CELL VOLUME 90.8 fL (80-100); MEAN CORPUSCULAR HEMOGLOBIN 28.3 pg (25-34); MEAN CORPUSCULAR HGB CONC 31.2 g/dl (32-36); MEAN PLATELET VOLUME 10.2 fL (7.4-10.4); MONO % 2.8 %; NEUT % 78.7 %; PLATELET COUNT 182 K/uL (130-400); RED BLOOD COUNT 4.56 M/uL (4.2-5.4); WHITE BLOOD COUNT 4.63 K/uL (4.8-10.8)
[2017-08-21 06:27] LABS: BUN/CREATININE RATIO 35.7 (10-20); CALCIUM 8.2 mg/dl (8.5-10.1); CREATININE 0.34 mg/dl (0.60-1.20); POTASSIUM 4.6 mmol/L (3.5-5.1)
--- NOTE | 2017-08-21 07:59 | Clinical Documentation Query ---
JOANN Langston : CLINICAL DOCUMENTATION QUERY Patient is a 57 year old female admitted for "ACUTE ON CHRONIC HYPERCAPNIC, HYPOXIC RESPIRATORY FAILURE DUE TO COPD EXACERBATION ". Appearance described as "cachectic". BMI noted to be 14.3 kg/m*m. Body weight of only 33.1 Kg. Appetite noted to be poor per nursing documentation. [employer] consultation pending. In your clinical opinion is this patient being managed for: ( ) Severe protein-calorie malnutrition (x ) Not Agree ( ) Other explanation of clinical findings (Please Explain) ( ) Unable to determine (Please Define) ( ) Need to Discuss Serum Albumin is 3.5. this is a number not suggestive of malnutrition The medical record reflects the following clinical findings, treatment, and risk factors. Clinical Indicators: As above Treatment: Rub[employer] Hand consultation, daily weights, I/O, monitoring of integumentary status. Risk Factors: Adenocarcinoma of the lung, COPD Please clarify and document your clinical opinion in the progress notes and discharge summary. Terms such as "probable", "suspected", "likely", "questionable", "possible", or "still to be ruled out" are acceptable. IF IN AGREEMENT, YOU MUST DOCUMENT ABOVE DIAGNOSTIC STATEMENT IN DAILY PROGRESS NOTES AND DISCHARGE SUMMARY. This document is not part of the patient's record. Thank You, Devin Lee RN [phone]
[2017-08-21] MEDS: BUDESONIDE/FORMOTEROL FUMARATE 160/4.5 60 PUFFS/INHALER INH SCH ×2 (08:01→20:52)
[2017-08-21] MEDS: PANTOprazole SOD 40 MG TAB PO SCH (08:01)
[2017-08-21] MEDS: HEPARIN SOD 5000 UNIT/0.5 ML CARP SQ SCH ×2 (08:23→20:53)
[2017-08-21] MEDS ORDERED: AZITHROMYCIN 250 MG TAB PO ONE (09:00)
--- NOTE | 2017-08-21 09:10 | Pulmonology Progress Note ---
Pulmonary Progress Note Date of Service Aug 21, 2017. Attending Dr. Silverman Subjective Patient states that she is feeling slightly improved from last night, but began to have some SOB when she started to eat breakfast. She was on nasal cannula and then changed back to CPAP during my exam. She continues to have on and off coughing with wheeze. She states that she felt like she was "on fire" this morning but denies overnight sweats/chills. Meds reviewed: Methylprednisolone decreased to 40 mg Q8h this AM Patient was on 1 L nasal cannula this morning, but was having some increased SOB , so changed back to CPAP. Currently also on Azithromycin, Budesonide, Atrovent, Xopenex Q6h Labs reviewed: WBC 4.63 this morning. Hgb 12.9. Serum Bicarb 39 Chloride 97 Potassium 4.6 Pertussis pending Flu negative Blood cultures pending. MRSA swab negative Repeat ABG yesterday afternoon: pH 7.23 pCO2 89 pO2 90 HCO3 36 O2 Sat 95.3 ROS otherwise reviewed and negative. Objective VS reviewed this AM: SaO2 96-100% on CPAP and nasal cannula HR 113 on exam BP 98/59 RR 18 General: Patient is awake and alert. Very thin. Respiratory distress during exam. Head: Normocephalic, Atraumatic. ENT: PERRLA, No discharge, EOMI, Sclera normal Neck: Normal ROM. Trachea midline. No stridor Respiratory: Severe high pitched wheeze throughout b/l lungs especially at bases. Accessory muscle use noted. CPAP placed back on. Cardiovascular: Tachycardia. No murmur appreciate. Normal S1/S2. Abdomen: Nontender to palpation. Normal bowel sounds hear throughout. No guarding. Abdomen is soft and nontender Extremities: No edema, cyanosis. Normal ROM Neuro: Alert. CN II-XII grossly intact. Sensation and motor function grossly intact. Psych: Mood and affect are normal. Assessment & Plan Acute on chronic respiratory failure with hypoxia and hypercarbia COPD with exacerbation Emphysema Lung cancer with probable recurrence Elevated LFTs Patient continues on BiPAP PRN for increased SOB and overnight- continue this along with O2 supplementation PRN for symptoms or decreased O2 saturation. Ideally keep SaO2 between 88-92%. Systemic steroids tapered to 40 mg Q8h this morning. Continue to slowly taper steroids as patient improves. Continue Azithromycin and other pulmonary medications as scheduled. We will follow. Data Medications: Current Inpatient Medications Medications (Trade) Dose Ordered Sig/Steven Route Start Time Stop Time Status Last Admin Dose Admin Ioversol (Optiray 320) 100 ml UD PRN IV 08/20/17 10:30 08/24/17 10:29 Sodium Chloride 1,000 ml @ 80 mls/hr [id number] IV 08/20/17 12:29 09/19/17 12:28 08/21/17 03:14 80 MLS/HR Acetaminophen (Tylenol Tab) 650 mg Q4H PRN PO 08/20/17 12:30 09/19/17 12:29 Ondansetron HCl (Zofran Inj) 4 mg Q6H PRN IV 08/20/17 12:30 09/19/17 12:29 Levofloxacin 500 mg/Prmx 100 ml @ 100 mls/hr DAILY@1300 IV 08/21/17 13:00 08/26/17 13:59 Budesonide/ Formoterol Fumarate (Symbicort 160/ 4.5 Inh) 2 puffs BID INH 08/20/17 21:00 09/19/17 20:59 08/21/17 08:01 2 PUFFS Pantoprazole Sodium (Protonix Tab) 40 mg QAM PO 08/21/17 09:00 09/20/17 08:59 08/21/17 08:01 40 MG Heparin Sodium (Porcine) (Heparin Sq 5000 Unit/0.5ml) 5,000 unit Q12 SQ 08/20/17 21:00 09/19/17 20:59 08/21/17 08:23 5,000 UNIT Ipratropium [place] (Atrovent 0.02% 0.5MG/2.5ML Neb) 0.5 mg Q6R INH 08/20/17 21:00 09/19/17 20:59 08/21/17 07:00 0.5 MG Levalbuterol (Xopenex 1.25MG/ 0.5ML Neb) 1.25 mg Q6R INH 08/20/17 21:00 09/19/17 20:59 08/21/17 07:00 1.25 MG Methylprednisolone Sodium Succinate 40 mg/Syringe 0.64 ml @ 1.5 mls/min Q8H IV 08/21/17 16:00 09/20/17 15:59 Azithromycin (Zithromax Tab) 500 mg TODAY@0900 ONCE PO 08/21/17 09:00 08/21/17 09:01 Azithromycin (Zithromax Tab) 250 mg DAILY PO 08/22/17 09:00 08/25/17 09:01 Vital Signs: Date Time Temp Pulse Resp B/P (MAP) Pulse Ox O2 Delivery O2 Flow Rate FiO2 08/21/17 07:00 76 17 96 Nasal Cannula 1.0 08/21/17 06:00 36.8 73 18 98/59 (72) 100 Nasal Cannula 1.0 08/21/17 05:38 73 97 40 08/21/17 04:00 BiPAP 40 08/21/17 04:00 63 14 103/61 (75) 100 BiPAP 40 08/21/17 02:25 71 16 97 BiPAP/CPAP 40 08/21/17 02:12 75 97 40 08/21/17 02:00 75 17 109/69 (82) 97 BiPAP 40 08/21/17 01:00 78 20 106/62 (77) 98 BiPAP 40 08/21/17 00:00 BiPAP 40 08/21/17 00:00 69 20 95/59 (71) 98 BiPAP 40 08/20/17 23:45 75 18 91 BiPAP/CPAP 40 08/20/17 23:28 87 91 40 08/20/17 22:00 77 15 90/59 (69) 100 Nasal Cannula 1.5 08/20/17 21:00 84 20 105/65 (78) 100 Nasal Cannula 1.5 08/20/17 20:00 36.8 94 23 135/78 (97) 97 Nasal Cannula 1.5 08/20/17 20:00 Nasal Cannula 1.5 08/20/17 19:00 78 17 105/65 (78) 100 Nasal Cannula 2.0 08/20/17 18:00 92 30 96/63 (74) 08/20/17 16:00 Nasal Cannula 1.5 08/20/17 16:00 90 22 128/68 (88) 92 Nasal Cannula 1.5 08/20/17 15:53 81 16 80/51 08/20/17 13:18 79 20 88/57 95 08/20/17 12:49 82 08/20/17 12:00 89 22 81/55 89 CPAP 40 08/20/17 11:00 88 87/56 96 CPAP 40 08/20/17 10:46 89 110/62 97 CPAP 40 08/20/17 10:40 89 100 08/20/17 10:39 88 99/62 99 CPAP 45 08/20/17 10:15 96 95/72 98 CPAP 08/20/17 10:00 100 94/70 98 CPAP 100 08/20/17 09:45 104 98 100 08/20/17 09:45 103 20 99 BiPAP/CPAP 80 08/20/17 09:40 97 CPAP 100 08/20/17 09:40 96 CPAP 15.0 100 08/20/17 09:40 36.5 118 22 153/85 98 CPAP 100 08/20/17 09:40 97 CPAP 15.0 100 08/20/17 09:35 103 99 80 08/20/17 09:34 98 08/20/17 09:32 153/85 Laboratory Results: Last 24 Hours Test 08/20/17 09:46 08/20/17 09:49 08/20/17 09:55 08/20/17 10:07 Influenza Type A (RT-PCR) Influenza Type A Antigen Neg for Influ A Influenza Type B Antigen Neg for Influ B Influenza Type B (RT-PCR) Prothrombin Time 11.0 SECONDS Prothromb Time International Ratio 1.0 Activated Partial Thromboplast Time 23.8 SECONDS Partial Thromboplastin Ratio 0.9 Bedside Hemoglobin 16.7 g/dl Bedside Hematocrit 49 % Bedside Sodium 138 mEq/L Bedside Potassium 3.9 mEq/L Bedside Chloride 90 mEq/L Bedside Total CO2 > 40 mEq/l Anion Gap 11.0 mmol/L 3.0 mmol/L Bedside Blood Urea Nitrogen 14 mg/dl Bedside Creatinine 0.7 mg/dl Bedside Glucose (other) 167 mg/dl Bedside Ionized Calcium (David) 1.15 mmol/l White Blood Count 13.83 K/uL Red Blood Count 5.32 M/uL Hemoglobin 15.3 g/dL Hematocrit 47.8 % Mean Corpuscular Volume 89.8 fL Mean Corpuscular Hemoglobin 28.8 pg Mean Corpuscular Hemoglobin Concent 32.0 g/dl Platelet Count 252 K/uL Mean Platelet Volume 11.0 fL Neutrophils (%) (Auto) 77.7 % Lymphocytes (%) (Auto) 15.8 % Monocytes (%) (Auto) 5.9 % Eosinophils (%) (Auto) 0.3 % Basophils (%) (Auto) 0.1 % Neutrophils # (Auto) 10.73 K/uL Lymphocytes # (Auto) 2.19 K/uL Monocytes # (Auto) 0.82 K/uL Eosinophils # (Auto) 0.04 K/uL Basophils # (Auto) 0.02 K/uL RDW Standard Deviation 41.9 fL RDW Coefficient of Variation 12.8 % Immature Granulocyte % (Auto) 0.2 % Immature Granulocyte # (Auto) 0.03 K/uL Arterial Blood pH 7.21 Arterial Blood Partial Pressure CO2 104 mmHg Arterial Blood Partial Pressure O2 466 mm/Hg Arterial Blood HCO3 41 mmol/L Arterial Blood Oxygen Saturation 99.9 % Arterial Blood Base Excess 8.4 mEq/L Arterial Blood Gas Delivery 15 L Luis Enrique Test POS Sodium Level 136 mmol/L Potassium Level 3.9 mmol/L Chloride Level 95 mmol/L Carbon Dioxide Level 38 mmol/L Blood Urea Nitrogen 12 mg/dl Creatinine 0.51 mg/dl Est Creatinine Clear Calc Drug Dose 64.7 ml/min Estimated GFR () 123.7 Estimated GFR (Non- 106.7 BUN/Creatinine Ratio 24.3 Random Glucose 165 mg/dl Calcium Level 8.5 mg/dl Total Bilirubin 0.2 mg/dl Aspartate Amino Transf (AST/SGOT) 155 U/L Alanine Aminotransferase (ALT/SGPT) 116 U/L Alkaline Phosphatase 75 U/L Total Creatine Kinase 72 U/L Creatine Kinase MB 2.5 ng/ml Creatine Kinase MB Ratio 3.5 Troponin I 0.021 ng/ml Total Protein 7.3 gm/dl Albumin 3.5 gm/dl Globulin 3.8 gm/dl Albumin/Globulin Ratio 0.9 Chemistry Specimen Hemolysis Test 08/20/17 10:20 08/20/17 13:26 08/20/17 21:20 08/21/17 05:34 Arterial Blood pH 7.23 Arterial Blood Partial Pressure CO2 89 mmHg Arterial Blood Partial Pressure O2 90 mm/Hg Arterial Blood HCO3 36 mmol/L Arterial Blood Oxygen Saturation 95.3 % Arterial Blood Base Excess 5.7 mEq/L Arterial Blood Gas Delivery 40% Luis Enrique Test POS Bedside Glucose 133 mg/dl White Blood Count 4.63 K/uL Red Blood Count 4.56 M/uL Hemoglobin 12.9 g/dL Hematocrit 41.4 % Mean Corpuscular Volume 90.8 fL Mean Corpuscular Hemoglobin 28.3 pg Mean Corpuscular Hemoglobin Concent 31.2 g/dl Platelet Count 182 K/uL Mean Platelet Volume 10.2 fL Neutrophils (%) (Auto) 78.7 % Lymphocytes (%) (Auto) 18.1 % Monocytes (%) (Auto) 2.8 % Eosinophils (%) (Auto) 0.0 % Basophils (%) (Auto) 0.2 % Neutrophils # (Auto) 3.64 K/uL Lymphocytes # (Auto) 0.84 K/uL Monocytes # (Auto) 0.13 K/uL Eosinophils # (Auto) 0.00 K/uL Basophils # (Auto) 0.01 K/uL RDW Standard Deviation 43.3 fL RDW Coefficient of Variation 13.0 % Immature Granulocyte % (Auto) 0.2 % Immature Granulocyte # (Auto) 0.01 K/uL Sodium Level 138 mmol/L Potassium Level 4.6 mmol/L Chloride Level 97 mmol/L Carbon Dioxide Level 39 mmol/L Anion Gap 2.0 mmol/L Blood Urea Nitrogen 12 mg/dl Creatinine 0.34 mg/dl Est Creatinine Clear Calc Drug Dose 95.4 ml/min Estimated GFR () 141.4 Estimated GFR (Non- 122.0 BUN/Creatinine Ratio 35.7 Random Glucose 124 mg/dl Calcium Level 8.2 mg/dl
--- NOTE | 2017-08-21 10:17 | Progress Note ---
Internal Med Progress Note Date of Service: Aug 21, 2017. Provider Documentation: SUBJECTIVE: Patient seen and examined in the ICU. Is on BIPAP from overnight. Patient able to speak with BIPAP on. Patient reports having discussion with pulmonary physicians earlier about code status. She understands that her pulmonary health is not well because of the COPD and lung cancer history and lung resection history. She cannot make a decision about deferring intubation in a medical emergency. We discussed that that code status is full code unless patient has strong beliefs about changing her mind. OBJECTIVE: General- no acute distress, verbal while on BIPAP, follows directions Eyes- EOMI ENT- could not assess hile on BIPAP Neck- no JVD, trachea midline Lungs- on BIPAP, fair air entry Heart- mild tachycardia Abdomen- soft, nontender, + bowel sounds Extremities- no gross motor deficits of extremities Neuro- awake and alert ASSESSMENT & PLAN: Acute on chronic respiratory failure with hypoxia and hypercarbia secondary to COPD exacerbation; COPD exacerbation likely from viral infection. continue IV Solu-Medrol (40 mg Q8h, Continue to slowly taper steroids as patient improves), DuoNeb's, azithromycin, and BIPAP prn (Ideally keep SaO2 between 88-92%) No obvious bacterial infection. Leukocytosis is likely related to steroid use. Relative Hypotension Blood pressure improving and stable, has received IV fluids, will hold IV fluids for now and monitor vital signs off Iv fluis Recurrence of malignancy. A CT scan of the chest revealed advanced emphysema, changes after right lower lobe wedge resection, multifocal nodularity suggestive for recurrent malignancy which is new when compared to PET scan in July 2016. Pulmonary service consulted by the ICU Renal function is adequate. patient has increased bicarbonate secondary to chronic compensation to hypercarbia. Increased hematocrit likely either to hemoconcentration or polycythemia related to chronic hypoxemia. Heparin for DVT prophylaxis. Disposition: transfer from ICU to telemetry [facility] Vital Signs: Date Time Temp Pulse Resp B/P (MAP) Pulse Ox O2 Delivery O2 Flow Rate FiO2 08/21/17 09:46 37.0 84 20 111/76 (88) 100 BiPAP 40 08/21/17 07:30 Nasal Cannula 1.0 08/21/17 07:30 37.0 94 24 98/59 (72) 96 Nasal Cannula 1.0 08/21/17 07:00 76 17 96 Nasal Cannula 1.0 08/21/17 06:00 36.8 73 18 98/59 (72) 100 Nasal Cannula 1.0 08/21/17 05:38 73 97 40 08/21/17 04:00 BiPAP 40 08/21/17 04:00 63 14 103/61 (75) 100 BiPAP 40 08/21/17 02:25 71 16 97 BiPAP/CPAP 40 08/21/17 02:12 75 97 40 08/21/17 02:00 75 17 109/69 (82) 97 BiPAP 40 08/21/17 01:00 78 20 106/62 (77) 98 BiPAP 40 08/21/17 00:00 BiPAP 40 08/21/17 00:00 69 20 95/59 (71) 98 BiPAP 40 08/20/17 23:45 75 18 91 BiPAP/CPAP 40 08/20/17 23:28 87 91 40 08/20/17 22:00 77 15 90/59 (69) 100 Nasal Cannula 1.5 08/20/17 21:00 84 20 105/65 (78) 100 Nasal Cannula 1.5 08/20/17 20:00 36.8 94 23 135/78 (97) 97 Nasal Cannula 1.5 08/20/17 20:00 Nasal Cannula 1.5 08/20/17 19:00 78 17 105/65 (78) 100 Nasal Cannula 2.0 08/20/17 18:00 92 30 96/63 (74) 08/20/17 16:00 Nasal Cannula 1.5 08/20/17 16:00 90 22 128/68 (88) 92 Nasal Cannula 1.5 08/20/17 15:53 81 16 80/51 08/20/17 13:18 79 20 88/57 95 08/20/17 12:49 82 08/20/17 12:00 89 22 81/55 89 CPAP 40 08/20/17 11:00 88 87/56 96 CPAP 40 08/20/17 10:46 89 110/62 97 CPAP 40 08/20/17 10:40 89 100 08/20/17 10:39 88 99/62 99 CPAP 45 Lab Results: Results Past 24 Hours Test 08/20/17 13:26 08/20/17 21:20 08/21/17 05:34 Range/Units Arterial Blood pH 7.23 7.35-7.45 Arterial Blood Partial Pressure CO2 89 35-46 mmHg Arterial Blood Partial Pressure O2 90 80-95 mm/Hg Arterial Blood HCO3 36 19-24 mmol/L Arterial Blood Oxygen Saturation 95.3 90-95 % Arterial Blood Base Excess 5.7 -9-1.8 mEq/L Arterial Blood Gas Delivery 40% Luis Enrique Test POS POS Bedside Glucose 133 70-90 mg/dl White Blood Count 4.63 4.8-10.8 K/uL Red Blood Count 4.56 4.2-5.4 M/uL Hemoglobin 12.9 12.0-16.0 g/dL Hematocrit 41.4 37-47 % Mean Corpuscular Volume 90.8 80-100 fL Mean Corpuscular Hemoglobin 28.3 25-34 pg Mean Corpuscular Hemoglobin Concent 31.2 32-36 g/dl Platelet Count 182 130-400 K/uL Mean Platelet Volume 10.2 7.4-10.4 fL Neutrophils (%) (Auto) 78.7 % Lymphocytes (%) (Auto) 18.1 % Monocytes (%) (Auto) 2.8 % Eosinophils (%) (Auto) 0.0 % Basophils (%) (Auto) 0.2 % Neutrophils # (Auto) 3.64 1.4-6.5 K/uL Lymphocytes # (Auto) 0.84 1.2-3.4 K/uL Monocytes # (Auto) 0.13 0.11-0.59 K/uL Eosinophils # (Auto) 0.00 0-0.5 K/uL Basophils # (Auto) 0.01 0-0.2 K/uL RDW Standard Deviation 43.3 36.4-46.3 fL RDW Coefficient of Variation 13.0 11.5-14.5 % Immature Granulocyte % (Auto) 0.2 % Immature Granulocyte # (Auto) 0.01 0.00-0.02 K/uL Sodium Level 138 136-145 mmol/L Potassium Level 4.6 3.5-5.1 mmol/L Chloride Level 97 98-107 mmol/L Carbon Dioxide Level 39 21-32 mmol/L Anion Gap 2.0 3-11 mmol/L Blood Urea Nitrogen 12 7-18 mg/dl Creatinine 0.34 0.60-1.20 mg/dl Est Creatinine Clear Calc Drug Dose 95.4 ml/min Estimated GFR () 141.4 Estimated GFR (Non- 122.0 BUN/Creatinine Ratio 35.7 10-20 Random Glucose 124 70-99 mg/dl Calcium Level 8.2 8.5-10.1 mg/dl Microbiology Results 08/20/17 MRSA DNA Surveillance Screen - Final, Complete Specimen Negative for MRSA by DNA Probe
--- NOTE | 2017-08-21 11:34 | Critical Care Progress Note ---
Critical Care Progress Note Date of Service Aug 21, 2017. Attending Dr. Koki Hernandez I personally examined this patient, reviewed her clinical and laboratory data, interpreted x-ray informed what further plan of care. In summary, the patient is a 57-year-old female with extensive emphysema, right lower lobe wedge resection one year ago for T1 tumor with PET scan showing recurrence of malignancy who was admitted yesterday with viral infection and COPD exacerbation. She spent the night in the surgical intensive care unit on BiPAP. Otherwise night was uneventful. She denies having any fever, chills, complains of dry cough and the shortness of breath, no chest pain. Objective Middle age female who is cachectic and looks older than stated age, off BiPAP with mildly increased work of breathing. Head is atraumatic, normocephalic, pupils were equal, round and reactive to light. Neck was supple, no JVD, no carotid bruit Lungs examination revealed diffusely diminished air movement, scattered wheezing , no crackles, some improvement in air movement. Heart was beating regularly, normal S1, S2, no S3. Abdomen is soft and nontender, no hepatosplenomegaly, no palpable masses. Lower extremities were warm, well-perfused, no edema, no calf tenderness. Neurologically, alert and oriented 3, no motor or sensory deficits. Psychiatric, appropriate affect. Assessment & Plan 1. Acute hypercapnic respiratory failure secondary to COPD exacerbation. Patient uses BiPAP overnight. There is some improvement in work of breathing. Patient would benefit from BiPAP at night and on as needed basis during the day. 2. COPD exacerbation likely from viral infection. We'll initiate IV Solu- Medrol, DuoNeb's. We'll change Levaquin to azithromycin. We'll decrease dose of Solu-Medrol to 40 mg IV every 8 hours. 3. Hemodynamics are acceptable, marginal hypotension. We will continue with gentle IV fluid administration. 4. Recurrence of malignancy. A CT scan of the chest revealed advanced emphysema, changes after right lower lobe wedge resection, multifocal nodularity suggestive for recurrent malignancy which is new when compared to PET scan in July 2016. We will ask palliative care team to discuss with the patient for future goals of care in case patient develops any respiratory compromise. Should she become intubated 8.she will be extubated but easily. At this time her CODE STATUS is full. 5. ID: No obvious bacterial infection. Leukocytosis is likely related to steroid use. 6. Renal function is adequate. Increased bicarbonate secondary to chronic compensation to hypercarbia. 7. Increased hematocrit likely either to hemoconcentration or polycythemia related to chronic hypoxemia. 8. Heparin for DVT prophylaxis. Patient has improved, we'll transfer her to telemetry for further continuation of management. [id number] note. ELEM II Score Date Score Was Generated: Aug 21, 2017 Consults & Procedures Consultants: Consultation: Critical care medicine, pulmonary medicine. Procedures: Procedures: None. Data Medications: Current Inpatient Medications Medications (Trade) Dose Ordered Sig/Steven Route Start Time Stop Time Status Last Admin Dose Admin Ioversol (Optiray 320) 100 ml UD PRN IV 08/20/17 10:30 08/24/17 10:29 Acetaminophen (Tylenol Tab) 650 mg Q4H PRN PO 08/20/17 12:30 09/19/17 12:29 Ondansetron HCl (Zofran Inj) 4 mg Q6H PRN IV 08/20/17 12:30 09/19/17 12:29 Budesonide/ Formoterol Fumarate (Symbicort 160/ 4.5 Inh) 2 puffs BID INH 08/20/17 21:00 09/19/17 20:59 08/21/17 08:01 2 PUFFS Pantoprazole Sodium (Protonix Tab) 40 mg QAM PO 08/21/17 09:00 09/20/17 08:59 08/21/17 08:01 40 MG Heparin Sodium (Porcine) (Heparin Sq 5000 Unit/0.5ml) 5,000 unit Q12 SQ 08/20/17 21:00 09/19/17 20:59 08/21/17 08:23 5,000 UNIT Ipratropium [place] (Atrovent 0.02% 0.5MG/2.5ML Neb) 0.5 mg Q6R INH 08/20/17 21:00 09/19/17 20:59 08/21/17 07:00 0.5 MG Levalbuterol (Xopenex 1.25MG/ 0.5ML Neb) 1.25 mg Q6R INH 08/20/17 21:00 09/19/17 20:59 08/21/17 07:00 1.25 MG Methylprednisolone Sodium Succinate 40 mg/Syringe 0.64 ml @ 1.5 mls/min Q8H IV 08/21/17 16:00 09/20/17 15:59 Azithromycin (Zithromax Tab) 250 mg DAILY PO 08/22/17 09:00 08/25/17 09:01 Vital Signs: Date Time Temp Pulse Resp B/P (MAP) Pulse Ox O2 Delivery O2 Flow Rate FiO2 08/21/17 09:46 37.0 84 20 111/76 (88) 100 BiPAP 40 08/21/17 07:30 Nasal Cannula 1.0 08/21/17 07:30 37.0 94 24 98/59 (72) 96 Nasal Cannula 1.0 08/21/17 07:00 76 17 96 Nasal Cannula 1.0 08/21/17 06:00 36.8 73 18 98/59 (72) 100 Nasal Cannula 1.0 08/21/17 05:38 73 97 40 08/21/17 04:00 BiPAP 40 08/21/17 04:00 63 14 103/61 (75) 100 BiPAP 40 08/21/17 02:25 71 16 97 BiPAP/CPAP 40 08/21/17 02:12 75 97 40 08/21/17 02:00 75 17 109/69 (82) 97 BiPAP 40 08/21/17 01:00 78 20 106/62 (77) 98 BiPAP 40 08/21/17 00:00 BiPAP 40 08/21/17 00:00 69 20 95/59 (71) 98 BiPAP 40 08/20/17 23:45 75 18 91 BiPAP/CPAP 40 08/20/17 23:28 87 91 40 08/20/17 22:00 77 15 90/59 (69) 100 Nasal Cannula 1.5 08/20/17 21:00 84 20 105/65 (78) 100 Nasal Cannula 1.5 08/20/17 20:00 36.8 94 23 135/78 (97) 97 Nasal Cannula 1.5 08/20/17 20:00 Nasal Cannula 1.5 08/20/17 19:00 78 17 105/65 (78) 100 Nasal Cannula 2.0 08/20/17 18:00 92 30 96/63 (74) 08/20/17 16:00 Nasal Cannula 1.5 08/20/17 16:00 90 22 128/68 (88) 92 Nasal Cannula 1.5 08/20/17 15:53 81 16 80/51 08/20/17 13:18 79 20 88/57 95 08/20/17 12:49 82 08/20/17 12:00 89 22 81/55 89 CPAP 40 Laboratory Results: Last 24 Hours Test 08/20/17 13:26 08/20/17 21:20 08/21/17 05:34 Arterial Blood pH 7.23 Arterial Blood Partial Pressure CO2 89 mmHg Arterial Blood Partial Pressure O2 90 mm/Hg Arterial Blood HCO3 36 mmol/L Arterial Blood Oxygen Saturation 95.3 % Arterial Blood Base Excess 5.7 mEq/L Arterial Blood Gas Delivery 40% Luis Enrique Test POS Bedside Glucose 133 mg/dl White Blood Count 4.63 K/uL Red Blood Count 4.56 M/uL Hemoglobin 12.9 g/dL Hematocrit 41.4 % Mean Corpuscular Volume 90.8 fL Mean Corpuscular Hemoglobin 28.3 pg Mean Corpuscular Hemoglobin Concent 31.2 g/dl Platelet Count 182 K/uL Mean Platelet Volume 10.2 fL Neutrophils (%) (Auto) 78.7 % Lymphocytes (%) (Auto) 18.1 % Monocytes (%) (Auto) 2.8 % Eosinophils (%) (Auto) 0.0 % Basophils (%) (Auto) 0.2 % Neutrophils # (Auto) 3.64 K/uL Lymphocytes # (Auto) 0.84 K/uL Monocytes # (Auto) 0.13 K/uL Eosinophils # (Auto) 0.00 K/uL Basophils # (Auto) 0.01 K/uL RDW Standard Deviation 43.3 fL RDW Coefficient of Variation 13.0 % Immature Granulocyte % (Auto) 0.2 % Immature Granulocyte # (Auto) 0.01 K/uL Sodium Level 138 mmol/L Potassium Level 4.6 mmol/L Chloride Level 97 mmol/L Carbon Dioxide Level 39 mmol/L Anion Gap 2.0 mmol/L Blood Urea Nitrogen 12 mg/dl Creatinine 0.34 mg/dl Est Creatinine Clear Calc Drug Dose 95.4 ml/min Estimated GFR () 141.4 Estimated GFR (Non- 122.0 BUN/Creatinine Ratio 35.7 Random Glucose 124 mg/dl Calcium Level 8.2 mg/dl
[2017-08-21] MEDS ORDERED: LEVOFLOXACIN / D5W 500 MG in PREMIXED IN D5W 100 ML IV SCH (13:00)
[2017-08-21] MEDS: METHYLPREDNISOLONE 40 MG in SYRINGE 0 ML IV SCH ×2 (16:14→23:50)
[2017-08-22] VITALS (16 sets, daily range): BP systolic 105–154; BP diastolic 71–94; PULSE 72–103; TEMP 36.5–37.3; O2SAT 91–99
[2017-08-22] MEDS: IPRATROPIUM BROMIDE NEB SOLN 0.02% 2.5 ML VIAL INH SCH ×7 (03:00→23:07)
[2017-08-22] MEDS: LEVALBUTEROL 1.25MG/0.5ML NEB INH SCH ×7 (03:00→23:08)
[2017-08-22 07:25] LABS: BASO % 0.1 %; BASO ABS # 0.01 K/uL (0-0.2); COMPLETE YES; HEMATOCRIT 43.6 % (37-47); IG% 0.2 %; LYMPH % 8.6 %; LYMPH ABS # 0.87 K/uL (1.2-3.4); MEAN CELL VOLUME 90.6 fL (80-100); MEAN CORPUSCULAR HEMOGLOBIN 28.1 pg (25-34); MEAN PLATELET VOLUME 10.6 fL (7.4-10.4); MONO % 7.4 %; NEUT % 83.7 %; PLATELET COUNT 239 K/uL (130-400); RED BLOOD COUNT 4.81 M/uL (4.2-5.4); WHITE BLOOD COUNT 10.07 K/uL (4.8-10.8)
[2017-08-22] MEDS: BUDESONIDE/FORMOTEROL FUMARATE 160/4.5 60 PUFFS/INHALER INH SCH ×2 (07:39→20:38)
[2017-08-22] MEDS: METHYLPREDNISOLONE 40 MG in SYRINGE 0 ML IV SCH (07:39)
[2017-08-22 08:09] LABS: BUN/CREATININE RATIO 56.1 (10-20); CALCIUM 8.7 mg/dl (8.5-10.1); CREATININE 0.31 mg/dl (0.60-1.20); MAGNESIUM 2.3 mg/dl (1.8-2.4); POTASSIUM 4.1 mmol/L (3.5-5.1)
[2017-08-22] MEDS ORDERED: NURSING VERBAL MED ORDER ONE (08:45)
--- NOTE | 2017-08-22 08:55 | Progress Note ---
Internal Med Progress Note Date of Service: Aug 22, 2017. Provider Documentation: SUBJECTIVE: Patient seen and examined on telemetry floor. Was called by nurse this AM because patient became more short of breath and tachypneic after trying to come off BIPAP to eat breakfast. Patient seen by medical doctor at bedside. Patient back on BIPAP after receiving nebulizer treatment and IV Solumedrol. Nurse given verbal order for Ativan. Patient denies vomiting after eating the breakfast. Patient reports to me in the presence of her nurse that she would not want "life support treatments" meaning no intubation, no chest compressions , no shocking the heart. Patient confirms code status to be DNR/DNI. ABG to be drawn. O2 sat while on BIPAP 95 to 97% Also re-affirmed with nursing staff that O2 saturation should be between 88 to 92% in a COPD patient OBJECTIVE: Vitals: Patient on BIPAP saturating above 95% General- no acute distress, verbal while on BIPAP, follows directions Eyes- EOMI ENT- could not assess on BIPAP Neck- no JVD, trachea midline Lungs- on BIPAP, poor air entry but air flow audible, no wheezing Heart- heart rate controlled Abdomen- soft, nontender, + bowel sounds Extremities- no gross motor deficits of extremities Neuro- awake and alert ASSESSMENT & PLAN: Acute on chronic respiratory failure with hypoxia and hypercarbia secondary to COPD exacerbation; COPD exacerbation likely from viral infection. continue IV Solu-Medrol (40 mg Q8h, Continue to slowly taper steroids as patient improves), DuoNeb's, azithromycin, and BIPAP prn (Ideally keep SaO2 between 88-92%) Pulmonary service following the patient Recurrence of malignancy. A CT scan of the chest revealed advanced emphysema, changes after right lower lobe wedge resection, multifocal nodularity suggestive for recurrent malignancy which is new when compared to PET scan in July 2016. Pulmonary service following the patient No obvious bacterial infection. Leukocytosis is likely related to steroid use. Blood pressure stable Renal function is adequate. patient has increased bicarbonate secondary to chronic compensation to hypercarbia. Has had increased hematocrit likely either to hemoconcentration or polycythemia related to chronic hypoxemia. Heparin for DVT prophylaxis. Disposition: on telemetry CODE STATUS: as of today 08/22/17, patient's code status is DNR/DNI Vital Signs: Date Time Temp Pulse Resp B/P (MAP) Pulse Ox O2 Delivery O2 Flow Rate FiO2 08/22/17 07:53 83 20 96 BiPAP/CPAP 40 08/22/17 07:44 36.5 74 20 132/78 (96) 96 BiPAP 08/22/17 06:50 98 BiPAP/CPAP 40 08/22/17 04:00 BiPAP 40 08/22/17 03:21 36.5 87 20 125/77 (93) 92 BiPAP 40 08/22/17 00:39 37.0 99 18 105/71 (82) 98 BiPAP 40 08/22/17 00:00 BiPAP 40 08/21/17 20:00 Nasal Cannula 2.0 08/21/17 19:43 37.1 98 20 147/71 (96) 94 Nasal Cannula 2.0 08/21/17 16:00 37.0 106 24 155/102 (119) 100 BiPAP 40 08/21/17 16:00 BiPAP 08/21/17 14:30 90 16 93 Nasal Cannula 1.0 08/21/17 11:30 Nasal Cannula 1.0 08/21/17 11:30 37.0 99 20 115/72 (86) 100 Nasal Cannula 1.0 08/21/17 09:46 37.0 84 20 111/76 (88) 100 BiPAP 40 Lab Results: Results Past 24 Hours Test 08/21/17 10:47 08/22/17 07:03 08/22/17 08:45 Range/Units Bedside Glucose 133 70-90 mg/dl White Blood Count 10.07 4.8-10.8 K/uL Red Blood Count 4.81 4.2-5.4 M/uL Hemoglobin 13.5 12.0-16.0 g/dL Hematocrit 43.6 37-47 % Mean Corpuscular Volume 90.6 80-100 fL Mean Corpuscular Hemoglobin 28.1 25-34 pg Mean Corpuscular Hemoglobin Concent 31.0 32-36 g/dl Platelet Count 239 130-400 K/uL Mean Platelet Volume 10.6 7.4-10.4 fL Neutrophils (%) (Auto) 83.7 % Lymphocytes (%) (Auto) 8.6 % Monocytes (%) (Auto) 7.4 % Eosinophils (%) (Auto) 0.0 % Basophils (%) (Auto) 0.1 % Neutrophils # (Auto) 8.42 1.4-6.5 K/uL Lymphocytes # (Auto) 0.87 1.2-3.4 K/uL Monocytes # (Auto) 0.75 0.11-0.59 K/uL Eosinophils # (Auto) 0.00 0-0.5 K/uL Basophils # (Auto) 0.01 0-0.2 K/uL RDW Standard Deviation 42.6 36.4-46.3 fL RDW Coefficient of Variation 12.8 11.5-14.5 % Immature Granulocyte % (Auto) 0.2 % Immature Granulocyte # (Auto) 0.02 0.00-0.02 K/uL Sodium Level 138 136-145 mmol/L Potassium Level 4.1 3.5-5.1 mmol/L Chloride Level 94 98-107 mmol/L Carbon Dioxide Level 42 21-32 mmol/L Anion Gap 3.0 3-11 mmol/L Blood Urea Nitrogen 18 7-18 mg/dl Creatinine 0.31 0.60-1.20 mg/dl Est Creatinine Clear Calc Drug Dose 99.9 ml/min Estimated GFR () 145.7 Estimated GFR (Non- 125.7 BUN/Creatinine Ratio 56.1 10-20 Random Glucose 118 70-99 mg/dl Calcium Level 8.7 8.5-10.1 mg/dl Magnesium Level 2.3 1.8-2.4 mg/dl
[2017-08-22] MEDS ORDERED: AZITHROMYCIN 250 MG TAB PO SCH (09:00)
[2017-08-22] MEDS ORDERED: LORAZEPAM 2 MG/ML 1 ML VIAL IV ONE (09:00)
[2017-08-22 09:08] LABS: ALLEN TEST POS (POS); ARTERIAL BLD GAS O2 SATURATION 93.8 % (90-95); ARTERIAL BLOOD GAS BASE EXCESS 11.9 mEq/L (-9-1.8); ARTERIAL BLOOD GAS HCO3 43 mmol/L (19-24); ARTERIAL BLOOD GAS PO2 79 mm/Hg (80-95); ARTERIAL BLOOD GAS pH 7.26 (7.35-7.45); O2 ADMINISTRATION 40%
--- NOTE | 2017-08-22 09:33 | PULMONARY PROGRESS NOTE ---
DATE: 08/22/2017 DATE: 08/22/2017 TIME: 9:05 a.m. SUBJECTIVE: The patient is very short of breath. She has had a worsening of her status in the past 1 hour. She did wear BiPAP overnight. She had it off for a little while to try and eat something. She became more short of breath. The BiPAP was put back on. She states she has been struggling to breathe since she came in. She has not improved. Early this morning, the patient made a decision to be a DNR. She has a hard time talking. She does have the BiPAP on at present. She still feels really tight in the chest. OBJECTIVE: GENERAL: The patient is mildly lethargic. She is arousable. She is dyspneic at rest. VITAL SIGNS: Temperature is 36.5. There is a BiPAP mask in place thus I did not examine the nasal passage or oropharynx. Heart rate is 83 per minute. The rhythm is regular. Blood pressure 132/78. CHEST: Aeration is poor. She is using her accessory muscles even with BiPAP in place. Respiratory rate was 20. ABDOMEN: Soft. Bowel sounds were present. There was no tenderness to palpation. EXTREMITIES: Showed no edema. LABORATORY DATA: White count is 10.07. Hemoglobin 13.5. Platelets 239,000. She had a blood gas drawn within the past few minutes that is pending. Electrolytes show sodium 138, potassium 4.1, chloride 94, bicarb 42. IMPRESSIONS: 1. Respiratory failure -- acute on chronic with hypoxia and hypercarbia. 2. Chronic obstructive pulmonary disease exacerbation. 3. Severe emphysema. 4. Lung cancer with recurrent. 5. Elevated liver function tests. COMMENTS AND RECOMMENDATIONS: The patient is doing poorly. She is now DNR. She was given a little Ativan earlier. She is still breathless. I spoke with Dr. Benito, her sign poster. I suggested that he might give her some morphine if the Ativan did not work. I am going to make attempts to reach for her to let him know the severity of her status at present. I would increase her methylprednisolone. She is at 40 mg IV q. 8 hours and I will change that to 80 mg. I am going to suggest that we change her neb treatments to Levalbuterol 0.63 q. 4 hours along with ipratropium. Prognosis is poor.
[2017-08-22] MEDS: PANTOprazole SOD 40 MG TAB PO SCH (12:24)
[2017-08-22] MEDS: HEPARIN SOD 5000 UNIT/0.5 ML CARP SQ SCH ×2 (12:24→21:14)
[2017-08-22] MEDS ORDERED: D5W AND 1/2NSS 1,000 ML IV STA (12:30)
[2017-08-22] MEDS: METHYLPREDNISOLONE IV 80 MG in SYRINGE 0 ML IV SCH (15:55)
[2017-08-22 16:38] LABS: HEMATOCRIT 45.8 % (37-47); MEAN CELL VOLUME 91.2 fL (80-100); MEAN CORPUSCULAR HEMOGLOBIN 27.9 pg (25-34); MEAN CORPUSCULAR HGB CONC 30.6 g/dl (32-36); MEAN PLATELET VOLUME 10.7 fL (7.4-10.4); PLATELET COUNT 246 K/uL (130-400); RED BLOOD COUNT 5.02 M/uL (4.2-5.4); WHITE BLOOD COUNT 13.51 K/uL (4.8-10.8)
--- NOTE | 2017-08-22 16:38 | DIAGNOSTIC IMAGING REPORT ---
SINGLE VIEW CHEST CLINICAL HISTORY: Dyspnea. COPD FINDINGS: An AP, portable, upright chest radiograph is compared to chest x-ray and chest CT dated 08/20/2017. The examination is degraded by portable technique and patient rotation. The cardiomediastinal silhouette is unremarkable. There is atherosclerotic calcification of the thoracic and. Severe emphysema and chronic interstitial thickening are similar to previous. Postoperative change is seen in the right lower lobe. Right lower lobe opacities adjacent to the suture margin are similar to previous. There is no airspace consolidation typical for pneumonia or large pleural effusion. Nipple shadows are noted bilaterally. No pneumothorax is seen. The skeletal structures are osteopenic. The bony thorax is grossly intact. IMPRESSION: 1. Severe emphysema with no acute cardiopulmonary abnormality. 2. Airspace opacities in the right infrahilar region are unchanged and were better characterized on yesterday's chest CT. Electronically signed by: Den Vaz M.D. 08/22/2017 4:36 PM Dictated Date/Time: 08/22/2017 4:33 PM
[2017-08-22 17:06] LABS: BUN/CREATININE RATIO 64.7 (10-20); CALCIUM 8.4 mg/dl (8.5-10.1); CREATININE 0.3 mg/dl (0.60-1.20); POTASSIUM 4.3 mmol/L (3.5-5.1)
[2017-08-22 17:19] LABS: ARTERIAL BLD GAS O2 SATURATION 98.8 % (90-95); ARTERIAL BLOOD GAS BASE EXCESS 13.9 mEq/L (-9-1.8); ARTERIAL BLOOD GAS HCO3 45 mmol/L (19-24); ARTERIAL BLOOD GAS PO2 153 mm/Hg (80-95); ARTERIAL BLOOD GAS pH 7.28 (7.35-7.45)
[2017-08-22 17:21] LABS: ALLEN TEST POS (POS); O2 ADMINISTRATION 60% 50L O2
[2017-08-22 17:26] LABS: PHOSPHORUS 2.6 mg/dl (2.5-4.9)
[2017-08-22] MEDS ORDERED: AZITHROMYCIN IV 500 MG in DEXTROSE 5% 250ML 250 ML IV SCH (17:30)
[2017-08-22] MEDS ORDERED: METOPROLOL TARTRATE 1 MG/ML VIAL IV STA (18:12)
[2017-08-22] MEDS ORDERED: METOPROLOL TARTRATE 1 MG/ML VIAL IV PRN (18:15)
--- NOTE | 2017-08-22 18:30 | Progress Note ---
Progress Note Date of Service Aug 22, 2017. Progress Note Called by nurse to assess the patient who has been tachypneic and labored breathing while on BIPAP. Patient also minimally verbal stat CXR ordered: Severe emphysema with no acute cardiopulmonary abnormality Stat labs drawn. Patient's ABG continues to show elevated carbon dioxide retention. Have attempted to switch between BIPAP, high flow nasal cannula to offer patient more comfort with her breathing but patient likely will continue to need BIPAP overnight for the CO2 retention. Will have ABG repeated at the night time with ABG in the AM to assist with decision making on BIPAP settings. Have spoken with nursing and respiratory therapist about maintaining O2 sat between 88% to 92% in a COPD patient such as Ms. Cabezas Patient's code status is DNR/DNI so intubation is not an option. Have notified pulmonary service Dr. Allen in regards to breathing and CO2 retention. We have discussed comfort care measures including giving morphine. Have talked at length with patient's family including her about giving sedative medications to offer comfort. Patient's concerned about Ativan given earlier in the morning as the cause for current respiratory and mental state. However, have explained to the patient's family that the cause is most likely due to the CO2 retention. The patient cannot decide on whether she would accept the morphine and patient's , initially declining the medication, and then changing his decision afterwards. We will try low dose morphine for now and observe whether this gives relief. Have also explained to patient and patient's family member that in the lab workup patient had mildly elevated troponin of 0.062. This is likely due to demand ischemia from work of breathing. Patient also mildly tachycardic in the with heart rate between 100 to 105 beats per minute. EKG did not show acute morphologies. Likewise elevated ammonia levels likely due to increase work of breathing, will trend LFTs Have explained to patient and family that we will trend ABGs and troponins tonight and tomorrow morning. Patient to receive low dose IV beta blockers Also keep patient NPO as she cannot take oral medications or food with the dyspnea. Have switched PO Azithromycin to IV Azithromycin for COPD. Continue IV solumedrol and nebulizer treatments Patient also having urinary retention. Cerrato to be placed by nursing to maintain decompression of bladder.
[2017-08-22] MEDS ORDERED: MoRPHine SULFATE 2 MG/ML CARP IV STA (18:39)
[2017-08-22 19:47] LABS: URINE APPEARANCE TURBID (CLEAR); URINE BILIRUBIN NEG (NEG); URINE COLOR YELLOW; URINE EPITHELIAL CELL AUTO >30 /lpf (0-5); URINE NITRITE NEG (NEG); URINE PH 7.5 (4.5-7.5); URINE SPECIFIC GRAVITY 1.017 (1.000-1.030); UROBILINOGEN NEG (NEG)
[2017-08-22 19:49] LABS: MANUAL MICROSCOPIC REQUIRED? NO; REVIEW REQ? YES
[2017-08-22 22:29] LABS: ALLEN TEST POS (POS); ARTERIAL BLD GAS O2 SATURATION 95.9 % (90-95); ARTERIAL BLOOD GAS BASE EXCESS 15.8 mEq/L (-9-1.8); ARTERIAL BLOOD GAS HCO3 46 mmol/L (19-24); ARTERIAL BLOOD GAS PO2 89 mm/Hg (80-95); ARTERIAL BLOOD GAS pH 7.35 (7.35-7.45); O2 ADMINISTRATION 2L O2
[2017-08-23] VITALS (12 sets, daily range): BP systolic 124–137; BP diastolic 71–80; PULSE 60–84; TEMP 36.5–37.2; O2SAT 92–99
[2017-08-23] MEDS: METHYLPREDNISOLONE IV 80 MG in SYRINGE 0 ML IV SCH ×3 (00:23→16:00)
[2017-08-23] MEDS ORDERED: ALBUT/IPRATROP 3MG/0.5MG NEB 3 ML VIAL INH PRN (02:00)
[2017-08-23] MEDS ORDERED: ALBUT/IPRATROP 3MG/0.5MG NEB 3 ML VIAL INH STA (02:09)
[2017-08-23] MEDS ORDERED: MoRPHine SULFATE 2 MG/ML CARP IV STA ×2 (02:10→08:03)
[2017-08-23] MEDS: IPRATROPIUM BROMIDE NEB SOLN 0.02% 2.5 ML VIAL INH SCH ×5 (03:48→23:03)
[2017-08-23] MEDS: LEVALBUTEROL 1.25MG/0.5ML NEB INH SCH ×5 (03:49→23:03)
[2017-08-23] MEDS: PANTOprazole SOD 40 MG TAB PO SCH (07:29)
[2017-08-23 07:33] LABS: BASO % 0.1 %; BASO ABS # 0.01 K/uL (0-0.2); COMPLETE YES; IG% 0.2 %; LYMPH % 4.4 %; LYMPH ABS # 0.44 K/uL (1.2-3.4); MEAN CELL VOLUME 90.7 fL (80-100); MEAN CORPUSCULAR HEMOGLOBIN 27.4 pg (25-34); MEAN CORPUSCULAR HGB CONC 30.2 g/dl (32-36); MEAN PLATELET VOLUME 10.5 fL (7.4-10.4); MONO % 3.5 %; NEUT % 91.8 %; PLATELET COUNT 218 K/uL (130-400); RED BLOOD COUNT 4.96 M/uL (4.2-5.4); WHITE BLOOD COUNT 10.09 K/uL (4.8-10.8)
[2017-08-23 07:37] LABS: ARTERIAL BLOOD GAS BASE EXCESS 15.4 mEq/L (-9-1.8); ARTERIAL BLOOD GAS HCO3 46 mmol/L (19-24); ARTERIAL BLOOD GAS PO2 56 mm/Hg (80-95); ARTERIAL BLOOD GAS pH 7.33 (7.35-7.45)
[2017-08-23 07:38] LABS: ALLEN TEST POS (POS); O2 ADMINISTRATION 35%
[2017-08-23] MEDS: BUDESONIDE/FORMOTEROL FUMARATE 160/4.5 60 PUFFS/INHALER INH SCH ×2 (07:45→20:16)
[2017-08-23] MEDS: AZITHROMYCIN IV 500 MG in DEXTROSE 5% 250ML 250 ML IV SCH (07:49)
[2017-08-23] MEDS: HEPARIN SOD 5000 UNIT/0.5 ML CARP SQ SCH ×2 (07:53→20:15)
[2017-08-23 08:02] LABS: BLOOD UREA NITROGEN 19 mg/dl (7-18); BUN/CREATININE RATIO 70.7 (10-20); CALCIUM 8.8 mg/dl (8.5-10.1); CHLORIDE 93 mmol/L (98-107); CREATININE 0.27 mg/dl (0.60-1.20); GLUCOSE 122 mg/dl (70-99); POTASSIUM 4.5 mmol/L (3.5-5.1); SODIUM 138 mmol/L (136-145)
[2017-08-23] MEDS ORDERED: MoRPHine SULFATE 2 MG/ML CARP ONE ×2 (08:09→15:10)
--- NOTE | 2017-08-23 08:16 | Progress Note ---
Internal Med Progress Note Date of Service: Aug 23, 2017. Provider Documentation: SUBJECTIVE: patient depending on BIPAP overnight. Morphine 1 mg yesterday evening offered some comfort and with breathing as per patient's nurse. Patient agrees to morphine this morning but she is minimally verbal and intermittently lethargic due to tachypnea OBJECTIVE: Vitals: Patient on BIPAP saturating above 95% General- no acute distress, minimally verbal while on BIPAP, follows directions Eyes- EOMI ENT- could not assess on BIPAP Neck- no JVD, trachea midline Lungs- on BIPAP and tachypneic, poor air entry but air flow audible, no wheezing Heart- heart rate controlled Abdomen- soft, nontender, + bowel sounds Extremities- no swelling of extremities Neuro- awake, lethargic, responds to commands with prompting ASSESSMENT & PLAN: Acute on chronic respiratory failure with hypoxia and hypercarbia secondary to COPD exacerbation -COPD exacerbation likely from viral infection -Breathing complicated by other lung abnormalities: Recurrence of malignancy. A CT scan of the chest revealed advanced emphysema, changes after right lower lobe wedge resection, multifocal nodularity suggestive for recurrent malignancy which is new when compared to PET scan in July 2016. Pulmonary service following the patient -patient has been struggling to breath while on BIPAP from 08/23/17; high flow nasal cannula has neither provide relief -CXR 08/23/17 negative for infiltrates and no pneumothorax -repeat CXR on 08/24/17 -have discussed with pulmonary service about CO2 retention, serial ABGs still showing CO2 retention -continue IV Solu-Medrol 80 mg IV Q8h, DuoNeb's, azithromycin IV, and BIPAP ( keep SaO2 between 88-92%) -morphine 1 mg IV from evening of 08/23/17 appears to help patient's comfort, will give again on AM of 08/23/17 and monitor breathing and comfort -have discussed with family about poor prognosis and poor chance of recovery -will likely need palliative care mildly elevated troponins likely due to demand ischemia from work of breathing mildly elevated troponin of 0.062 then 0.035 EKG did not show acute morphologies received IV 5 mg IV metoprolol tartrate on 08/23/17 for tachycardia, give again if HR above 110 elevated ammonia levels likely due to increase work of breathing, will trend LFTs -patient has increased bicarbonate secondary to chronic compensation to hypercarbia. -on kruger because of urinary retention Has had increased hematocrit likely either to hemoconcentration or polycythemia related to chronic hypoxemia. Heparin for DVT prophylaxis. Disposition: on telemetry CODE STATUS: as of 08/22/17, patient's code status is DNR/DNI Vital Signs: Date Time Temp Pulse Resp B/P (MAP) Pulse Ox O2 Delivery O2 Flow Rate FiO2 08/23/17 08:08 37.1 76 22 137/72 (93) 92 BiPAP 08/23/17 07:12 77 22 92 BiPAP/CPAP 35 08/23/17 07:12 78 92 35 08/23/17 04:45 96 BiPAP 35 08/23/17 04:42 36.5 75 20 127/80 (96) 97 BiPAP 08/23/17 03:50 75 22 97 BiPAP/CPAP 35 08/23/17 02:16 78 97 35 08/23/17 02:07 84 28 96 BiPAP/CPAP 45 08/23/17 00:23 95 BiPAP 35 08/23/17 00:21 37.2 74 20 124/77 (93) 96 BiPAP 08/22/17 23:09 73 98 35 08/22/17 23:08 73 21 98 BiPAP/CPAP 35 08/22/17 20:46 77 95 35 08/22/17 19:59 80 08/22/17 19:26 87 20 93 BiPAP/CPAP 35 08/22/17 19:20 High Flow Oxygen 25.0 35 08/22/17 19:14 37.3 86 24 129/82 (98) 94 High Flow Oxygen 08/22/17 16:00 BiPAP 08/22/17 15:56 36.7 91 28 154/94 (114) 91 BiPAP 08/22/17 15:24 79 99 40 08/22/17 15:11 72 20 97 BiPAP/CPAP 40 08/22/17 12:00 BiPAP 08/22/17 11:36 36.9 103 20 143/71 (95) 98 BiPAP 08/22/17 11:25 73 97 40 08/22/17 11:24 83 20 92 BiPAP/CPAP 40 Lab Results: Results Past 24 Hours Test 08/22/17 08:45 08/22/17 16:13 08/22/17 16:14 08/22/17 17:04 Range/Units Arterial Blood pH 7.26 7.28 7.35-7.45 Arterial Blood Partial Pressure CO2 99 97 35-46 mmHg Arterial Blood Partial Pressure O2 79 153 80-95 mm/Hg Arterial Blood HCO3 43 45 19-24 mmol/L Arterial Blood Oxygen Saturation 93.8 98.8 90-95 % Arterial Blood Base Excess 11.9 13.9 -9-1.8 mEq/L Arterial Blood Gas Delivery 40% 60% 50L O2 Luis Enrique Test POS POS POS Sodium Level 138 136-145 mmol/L Potassium Level 4.3 3.5-5.1 mmol/L Chloride Level 93 98-107 mmol/L Carbon Dioxide Level 44 21-32 mmol/L Anion Gap 1.0 3-11 mmol/L Blood Urea Nitrogen 19 7-18 mg/dl Creatinine 0.30 0.60-1.20 mg/dl Est Creatinine Clear Calc Drug Dose 103.2 ml/min Estimated GFR () 147.3 Estimated GFR (Non- 127.1 BUN/Creatinine Ratio 64.7 10-20 Random Glucose 141 70-99 mg/dl Calcium Level 8.4 8.5-10.1 mg/dl Phosphorus Level 2.6 2.5-4.9 mg/dl Magnesium Level 2.4 1.8-2.4 mg/dl Ammonia 103.0 11-32 umol/L Troponin I 0.062 0-0.045 ng/ml White Blood Count 13.51 4.8-10.8 K/uL Red Blood Count 5.02 4.2-5.4 M/uL Hemoglobin 14.0 12.0-16.0 g/dL Hematocrit 45.8 37-47 % Mean Corpuscular Volume 91.2 80-100 fL Mean Corpuscular Hemoglobin 27.9 25-34 pg Mean Corpuscular Hemoglobin Concent 30.6 32-36 g/dl RDW Standard Deviation 42.5 36.4-46.3 fL RDW Coefficient of Variation 12.8 11.5-14.5 % Platelet Count 246 130-400 K/uL Mean Platelet Volume 10.7 7.4-10.4 fL Test 08/22/17 18:46 08/22/17 22:04 08/22/17 22:23 08/23/17 07:08 Range/Units Urine Color YELLOW Urine Appearance TURBID CLEAR Urine pH 7.5 4.5-7.5 Urine Specific [place] 1.017 1.000-1.030 Urine Protein NEG NEG Urine Glucose (UA) 1+ NEG Urine Ketones NEG NEG Urine Occult Blood 1+ NEG Urine Nitrite NEG NEG Urine Bilirubin NEG NEG Urine Urobilinogen NEG NEG Urine Leukocyte Esterase TRACE NEG Urine WBC (Auto) 5-10 0-5 /hpf Urine RBC (Auto) 10-30 0-4 /hpf Urine Hyaline Casts (Auto) 5-10 0-5 /lpf Urine Epithelial Cells (Auto) >30 0-5 /lpf Urine Bacteria (Auto) 1+ NEG Urine Renal Epithelial Cells 0-5 /lpf Urine Yeast (Auto) PRESENT NONE PRSENT Arterial Blood pH 7.35 7.33 7.35-7.45 Arterial Blood Partial Pressure CO2 85 88 35-46 mmHg Arterial Blood Partial Pressure O2 89 56 80-95 mm/Hg Arterial Blood HCO3 46 46 19-24 mmol/L Arterial Blood Oxygen Saturation 95.9 89.0 90-95 % Arterial Blood Base Excess 15.8 15.4 -9-1.8 mEq/L Arterial Blood Gas Delivery 2L O2 35% Luis Enrique Test POS POS POS Troponin I 0.035 0.024 0-0.045 ng/ml White Blood Count 10.09 4.8-10.8 K/uL Red Blood Count 4.96 4.2-5.4 M/uL Hemoglobin 13.6 12.0-16.0 g/dL Hematocrit 45.0 37-47 % Mean Corpuscular Volume 90.7 80-100 fL Mean Corpuscular Hemoglobin 27.4 25-34 pg Mean Corpuscular Hemoglobin Concent 30.2 32-36 g/dl Platelet Count 218 130-400 K/uL Mean Platelet Volume 10.5 7.4-10.4 fL Neutrophils (%) (Auto) 91.8 % Lymphocytes (%) (Auto) 4.4 % Monocytes (%) (Auto) 3.5 % Eosinophils (%) (Auto) 0.0 % Basophils (%) (Auto) 0.1 % Neutrophils # (Auto) 9.27 1.4-6.5 K/uL Lymphocytes # (Auto) 0.44 1.2-3.4 K/uL Monocytes # (Auto) 0.35 0.11-0.59 K/uL Eosinophils # (Auto) 0.00 0-0.5 K/uL Basophils # (Auto) 0.01 0-0.2 K/uL RDW Standard Deviation 42.3 36.4-46.3 fL RDW Coefficient of Variation 12.7 11.5-14.5 % Immature Granulocyte % (Auto) 0.2 % Immature Granulocyte # (Auto) 0.02 0.00-0.02 K/uL Sodium Level 138 136-145 mmol/L Potassium Level 4.5 3.5-5.1 mmol/L Chloride Level 93 98-107 mmol/L Anion Gap 3-11 mmol/L Blood Urea Nitrogen 19 7-18 mg/dl Creatinine 0.27 0.60-1.20 mg/dl Est Creatinine Clear Calc Drug Dose 111.8 ml/min Estimated GFR () > 150.0 Estimated GFR (Non- 131.6 BUN/Creatinine Ratio 70.7 10-20 Random Glucose 122 70-99 mg/dl Calcium Level 8.8 8.5-10.1 mg/dl
[2017-08-23 08:25] LABS: CARBON DIOXIDE 43 mmol/L (21-32)
--- NOTE | 2017-08-23 08:26 | DIAGNOSTIC IMAGING REPORT ---
CHEST ONE VIEW PORTABLE CLINICAL HISTORY: copd RESPIRATORY FAILURE COMPARISON STUDY: 08/22/2017 FINDINGS: There is radiographic evidence of severe emphysema. There is no failure. There is no lobar pulmonary consolidation. There is stable prominence of the right main hilum. There is stable blunting of the lateral costophrenic angles.[ Right perihilar airspace opacities remain stable. IMPRESSION: 1. No change from the preceding study 2. Severe emphysema 3. Stable right perihilar airspace opacities Electronically signed by: Praveen Davis M.D. 08/23/2017 8:25 AM Dictated Date/Time: 08/23/2017 8:24 AM
[2017-08-23 09:06] LABS: ALKALINE PHOSPHATASE 58 U/L (45-117); ALT/SGPT 163 U/L (12-78); AST/SGOT 70 U/L (15-37)
--- NOTE | 2017-08-23 13:39 | PROGRESS NOTE ---
DATE: 08/23/2017 SUBJECTIVE: The patient is hypersomnolent. The patient had just been administered morphine and clearly was demonstrating signs and symptoms of acute on chronic respiratory hypoxemic hypercarbic respiratory failure. She is currently on BiPAP and had just received morphine and would barely open her eyes to prompting. Her was in attendance. She is not at this point in time demonstrating use of accessory muscles of respiration, but she is somnolent and barely arousable with shallow respirations. PHYSICAL EXAMINATION: CURRENT VITAL SIGNS: Temperature 36.5, pulse 68 and irregular, respiratory rate 20, blood pressure 133/71, O2 sat 98%, utilizing BiPAP and FiO2 of 35%. SKIN: Warm and dry. HEENT: Atraumatic, normocephalic, PERRLA, EOMI. Conjunctivae pale. Sclerae nonicteric. Fundi poorly visualized. NECK: Neck veins are not distended at 45 degrees. No evidence of adenopathy in the supra or infraclavicular region. LUNGS: Markedly decreased breath sounds with hyperresonance, difficult to hear any audible wheezing or evidence for consolidation. CARDIAC: Regular rate and rhythm. I do not appreciate a gallop. ABDOMEN: Soft, scaphoid. No evidence of hepatosplenomegaly. EXTREMITIES: No significant pedal edema, clubbing or cyanosis. NEUROLOGICAL: Will barely open eyes to loud commands, otherwise extremely hypersomnolent and not responding to commands. CURRENT LABORATORY DATA: White count 10,000, H&H 13.6 and 45, 10.5% early immature granulocytes. ABGs: pH 7.33, pCO2 of 88, pO2 of 56 on current FIO2. Carbon dioxide level 43, BUN 19, creatinine 0.27, AST 70, ALT 163, albumin 3.2. CAT scan on 08/20 was reviewed and shows previous wedge resection of right lower lobe with persistent multifocal soft tissue nodularity along the suture line, suggesting recurrent neoplasm. A 5 mm nodule in the lingula, described previously. No pathologic adenopathy, severe advanced emphysema. Chest x-ray today shows no significant change from previous studies. OVERALL ASSESSMENT: A 57-year-old with severe end-stage chronic obstructive pulmonary disease, O2 dependent and with a history of thorascopic wedge resection in early 2015 for nonsmall cell carcinoma with signs by current CT scan of recurrence at the suture line, now on the throes of acute on chronic hypoxemic and hypercarbic respiratory failure. I have had a lengthy discussion with Dr. Benito, the patient's hospitalist from [facility] along with the patient's son and the nursing staff. I have tried to make it very clear as it has in the recent past with the family members that patient is end stage and although she has rallied in the past to improve after looking quite poorly, that I believe that the combination of her end-stage lung disease, the intercurrent infection, and probable recurrent carcinoma, that comfort measures are clearly appropriate here and anything more aggressive would be not in the patient's best interest. Ativan apparently was not helpful ____ but IV morphine appears to comfort the patient and make her less agitated and I was very supportive of that train of thought, as was the after careful discussion. I even offered palliative care consultation with Dr. Wendy Wade if necessary to aid us in comfort measures for this patient. At this point in time, we will continue current therapy and try to keep the patient as comfortable as possible. We will follow along with you. Thank you very much for this consultation.
[2017-08-23] MEDS: SODIUM CHLORIDE 0.9% 1000ML 1,000 ML IV SCH (20:39)
[2017-08-24 00:08] VITALS: BP 119/63; PULSE 80; TEMP 36.9; O2SAT 99
[2017-08-24] MEDS: METHYLPREDNISOLONE IV 80 MG in SYRINGE 0 ML IV SCH ×2 (00:36→08:46)
[2017-08-24] MEDS: MoRPHine SULFATE 2 MG/ML CARP IV PRN ×5 (01:07→21:20)
[2017-08-24] MEDS: IPRATROPIUM BROMIDE NEB SOLN 0.02% 2.5 ML VIAL INH SCH (04:00)
[2017-08-24] MEDS: LEVALBUTEROL 1.25MG/0.5ML NEB INH SCH (04:00)
[2017-08-24 07:50] VITALS: BP 117/65; PULSE 95; O2SAT 98
[2017-08-24] MEDS: AZITHROMYCIN IV 500 MG in DEXTROSE 5% 250ML 250 ML IV SCH (08:55)
[2017-08-24] MEDS: HEPARIN SOD 5000 UNIT/0.5 ML CARP SQ SCH ×2 (09:00→21:00)
--- NOTE | 2017-08-24 09:13 | Progress Note ---
Internal Med Progress Note Date of Service: Aug 24, 2017. Provider Documentation: SUBJECTIVE: Patient seen today off the BIPAP and on the oxygen mask. As per the patient's , the patient requested for the BIPAP to be stopped and not to be placed on the BIPAP again. Patient opens her eyes when prompted but does not speak when asked to OBJECTIVE: General- lethargic, on oxygen mask Eyes- EOMI Neck- no JVD, trachea midline Lungs- on oxygen mask, fair air entry, no wheezing Heart- heart rate controlled Abdomen- soft, nontender, + bowel sounds Extremities- no swelling of extremities ASSESSMENT & PLAN: 57-year-old with severe end-stage chronic obstructive pulmonary disease, O2 dependent and with a history of thorascopic wedge resection in early 2015 for nonsmall cell carcinoma with signs by current CT scan of recurrence at the suture line, now with acute on chronic hypoxemic and hypercarbic respiratory failure Acute on chronic respiratory failure with hypoxia and hypercarbia secondary to COPD exacerbation -COPD exacerbation likely from viral infection -Breathing complicated by other lung abnormalities: Recurrence of malignancy. A CT scan of the chest revealed advanced emphysema, changes after right lower lobe wedge resection, multifocal nodularity suggestive for recurrent malignancy which is new when compared to PET scan in July 2016. -patient has been struggling to breath while on BIPAP from 08/23/17; high flow nasal cannula has neither provide relief -CXR 08/23/17 negative for infiltrates and no pneumothorax -repeat CXR on 08/24/17 -have discussed with pulmonary service about CO2 retention, serial ABGs with CO2 retention, pulmonary service recommending comfort measures and palliative care -palliative care recommendations appreciated to discuss goals of care with family -patient and patient's family has declined BIPAP between 08/23/17 to 08/24/17 -continue IV Solu-Medrol 80 mg IV Q8h, DuoNeb's, azithromycin IV mildly elevated troponins likely due to demand ischemia from work of breathing mildly elevated troponin of 0.062 then 0.035 EKG did not show acute morphologies received IV 5 mg IV metoprolol tartrate on 08/23/17 for tachycardia, give again if HR above 110 elevated ammonia levels likely due to increase work of breathing -patient has increased bicarbonate secondary to chronic compensation to hypercarbia. -on kruger because of urinary retention Has had increased hematocrit likely either to hemoconcentration or polycythemia related to chronic hypoxemia. Heparin for DVT prophylaxis. CODE STATUS: as of 08/22/17, patient's code status is DNR/DNI Vital Signs: Date Time Temp Pulse Resp B/P (MAP) Pulse Ox O2 Delivery O2 Flow Rate FiO2 08/24/17 07:50 95 117/65 (82) 98 Oxymask 9.0 08/24/17 04:07 Oxymask Partial Rebreather 08/24/17 00:08 36.9 80 16 119/63 (81) 99 08/24/17 00:06 Oxymask Partial Rebreather 08/23/17 20:00 Oxymask Partial Rebreather 08/23/17 16:03 BiPAP 08/23/17 15:28 82 26 95 BiPAP/CPAP 35 08/23/17 15:28 82 95 35 08/23/17 12:03 BiPAP 08/23/17 11:34 36.5 68 22 133/71 (91) 98 BiPAP 08/23/17 11:11 60 21 99 BiPAP/CPAP 35 08/23/17 11:11 60 99 35 Lab Results: Results Past 24 Hours Test 08/23/17 11:52 08/24/17 04:44 08/24/17 06:34 Range/Units Bedside Glucose 138 107 70-90 mg/dl
[2017-08-24] MEDS ORDERED: NURSING VERBAL MED ORDER ONE (11:15)
--- NOTE | 2017-08-24 11:17 | Palliative Care Consultation ---
Consultation Date of Consultation: Aug 24, 2017. Requesting Physician: Dr. Benito Attending Physician: Dr. Benito Reason for Consultation: Goals of care History of Present Illness This 57 year old female patient with PMH severe COPD and non-small cell lung CA s/p right lower lobe wedge resection, presented to the ED four days ago with increased SOB, cough, rhinorrhea, and sore throat. Patient and had reported that they both had a cold, but patient is not improving. She uses oxygen chronically at home, had to increase from 1LNC to 2LNC. In ED, her ABG revealed ph of 7.2- she was started on Bipap and admitted to ICU for respiratory failure related to COPD exacerbation. On CT scan, patient unfortunately has not only severely advanced COPD, but also possible recurrence of lung malignancy at the old suture line. She has remained bipap dependent throughout hospital stay. Yesterday, patient voiced her wishes to stop aggressive medical treatment and to transition to comfort measures only. She does not want to wear the bipap. Palliative care consulted. I met with the patient, her Larry (Uri), daughter in law and another family member/friend in room 216. Patient is lethargic, but does open eyes. She did not answer questions or follow commands, quickly went back to sleep. She had received morphine about 90 minutes prior to my arrival. She had no signs of distress, SOB, or pain. Family agreed that morphine works well for her comfort. and family confirmed goal of comfort measures only. See plan below. Past Medical/Surgical History Medical History: Lung adenocarcinoma COPD, severe/advanced Social History Smoking Status: Never Smoker History of Alcohol Use: Yes (rarely, socially) Marital Status: Housing Status: lives with family Review of Systems unable to obtain ROS due to altered mental status Allergies Coded Allergies: No Known Allergies (Unverified , 03/02/17) Medications Current Inpatient Medications Medications (Trade) Dose Ordered Sig/Steven Route Start Time Stop Time Status Last Admin Dose Admin Acetaminophen (Tylenol Tab) 650 mg Q4H PRN PO 08/20/17 12:30 09/19/17 12:29 Ondansetron HCl (Zofran Inj) 4 mg Q6H PRN IV 08/20/17 12:30 09/19/17 12:29 Budesonide/ Formoterol Fumarate (Symbicort 160/ 4.5 Inh) 2 puffs BID INH 08/20/17 21:00 09/19/17 20:59 08/22/17 20:38 2 PUFFS Pantoprazole Sodium (Protonix Tab) 40 mg QAM PO 08/21/17 09:00 09/20/17 08:59 08/21/17 08:01 40 MG Heparin Sodium (Porcine) (Heparin Sq 5000 Unit/0.5ml) 5,000 unit Q12 SQ 08/20/17 21:00 09/19/17 20:59 08/23/17 07:53 5,000 UNIT Methylprednisolone Sodium Succinate 80 mg/Syringe 1.28 ml @ 1.5 mls/min Q8H IV 08/22/17 16:00 09/20/17 15:59 08/24/17 08:46 1.5 MLS/MIN Ipratropium [place] (Atrovent 0.02% 0.5MG/2.5ML Neb) 0.5 mg Q4R INH 08/22/17 12:00 09/21/17 11:59 08/23/17 11:11 0.5 MG Levalbuterol (Xopenex 1.25MG/ 0.5ML Neb) 0.63 mg Q4R INH 08/22/17 12:00 09/21/17 11:59 08/23/17 11:11 0.63 MG Azithromycin 500 mg/Dextrose 255 ml @ 125 mls/hr DAILY IV 08/23/17 09:00 08/30/17 08:59 08/24/17 08:55 125 MLS/HR Metoprolol Tartrate (Lopressor Iv) 5 mg Q6 PRN IV 08/22/17 18:15 09/21/17 18:14 Albuterol/ Ipratropium (Duoneb) 3 ml Q2H PRN INH 08/23/17 02:00 09/22/17 01:59 Morphine Sulfate (MoRPHine SULFATE INJ) 1 mg Q8 PRN IV 08/23/17 15:00 09/06/17 14:59 08/24/17 08:47 1 MG Sodium Chloride 1,000 ml @ 50 mls/hr Q20H IV 08/23/17 20:30 09/22/17 20:29 08/23/17 20:39 50 MLS/HR Physical Exam Date Time Temp Pulse Resp B/P (MAP) Pulse Ox O2 Delivery O2 Flow Rate FiO2 08/24/17 07:50 95 117/65 (82) 98 Oxymask 9.0 08/24/17 04:07 Oxymask Partial Rebreather 08/24/17 00:08 36.9 80 16 119/63 (81) 99 08/24/17 00:06 Oxymask Partial Rebreather 08/23/17 20:00 Oxymask Partial Rebreather 08/23/17 16:03 BiPAP 08/23/17 15:28 82 26 95 BiPAP/CPAP 35 08/23/17 15:28 82 95 35 08/23/17 12:03 BiPAP 08/23/17 11:34 36.5 68 22 133/71 (91) 98 BiPAP 08/23/17 11:11 60 21 99 BiPAP/CPAP 35 08/23/17 11:11 60 99 35 General Appearance: no apparent distress, + cachetic, + thin Neck: supple, no JVD Respiratory: no respiratory distress, no accessory muscle use, + decreased breath sounds (extremely decreased air exchange throughout), + pertinent finding (no adventitious lung sounds at this time. 6L oxy mask on at this time) Cardiovascular: regular rate, rhythm, no edema, + normal peripheral pulses Abdomen: normal bowel sounds, soft Musculoskeletal: pertinent finding Neurologic/Psychiatric: + pertinent finding (lethargic, does open eyes. Does not answer questions or follow commands.) Skin: normal color Laboratory Results Last 24 Hours Test 08/23/17 11:52 08/24/17 06:34 Bedside Glucose 138 mg/dl 107 mg/dl Assessment & Plan Palliative Performance Scale: 10 % Problem list: SOB Altered mental status Respiratory failure, hypoxic and hypercarbic Severe COPD Hx non-small cell lung CA s/p right lower lobe wedge resection, possible recurrent malignancy seen on CT scan Mildly elevated troponin Goals of care (Z51.5) Palliative care recs: discussed with patient's Larry (Uri), daughter -in-law, and another family friend. Collaborated with Dr. Benito. -Based on patient's decision yesterday, bipap was discontinued and will not be restarted. Family is all aware of this and would like to honor patient's wish-- no more Bipap. -After discussion with family, patient will now transition to comfort measures only. Transfer to [facility]. In my opinion, patient will not be able to leave hospital and will likely in hours to days. I did tell the and family this, they agreed. -Family does not want any Ativan to be given. -Continue oxymask or nasal cannula for comfort. -Discontinue abx. This was discussed with and family. -Family would like to continue IVF for now at 50ml/hr. We did discuss discontinuing these if there are any signs of fluid overload/increased SOB. was agreeable. Would be reasonable to stop at any time. -Continue morphine, increase to 1mg Q1h PRN pain or SOB. -Change nebulizer treatments to PRN. -Discontinue PO protonix. Unable to take anything by mouth. Thank you kindly for this consult. I will follow as needed.
[2017-08-24] MEDS ORDERED: ALBUT/IPRATROP 3MG/0.5MG NEB 3 ML VIAL INH PRN (11:30)
[2017-08-24] MEDS ORDERED: LEVALBUTEROL 1.25MG/0.5ML NEB INH PRN (11:30)
[2017-08-24] MEDS ORDERED: IPRATROPIUM BROMIDE NEB SOLN 0.02% 2.5 ML VIAL INH PRN (11:30)
[2017-08-24 11:59] VITALS: BP 117/65; PULSE 95; TEMP 36.9; O2SAT 98
[2017-08-24] MEDS: SODIUM CHLORIDE 0.9% 1000ML 1,000 ML IV SCH (16:56)
[2017-08-24] MEDS: BUDESONIDE/FORMOTEROL FUMARATE 160/4.5 60 PUFFS/INHALER INH SCH ×2 (20:00→20:25)
[2017-08-25] MEDS: MoRPHine SULFATE 2 MG/ML CARP IV PRN ×6 (01:35→17:20)
[2017-08-25] MEDS: BUDESONIDE/FORMOTEROL FUMARATE 160/4.5 60 PUFFS/INHALER INH SCH ×2 (08:31→20:00)
[2017-08-25] MEDS: HEPARIN SOD 5000 UNIT/0.5 ML CARP SQ SCH ×2 (08:32→20:07)
[2017-08-25] MEDS: SODIUM CHLORIDE 0.9% 1000ML 1,000 ML IV SCH (13:28)
--- NOTE | 2017-08-25 14:42 | Palliative Care Progress Note ---
Palliative Care Progress Note Date of Service Aug 25, 2017. Subjective Pt evaluation today including: conversation w/ family (, [id number] , 3 grandchildren), physical exam, conversation w/ personnel consultant Pain: no s/s pain or distress PO Intake: none Voiding: kruger catheter in place IVF continue at 50ml/hr Patient more somnolent today. She did respond with some movement to her granddaughter. Did not open eyes or speak Has received about 6 doses of 1mg Iv morphine in last 24 hours. and family at bedside. Review of Systems unable to obtain ROS due to obtundation Objective Vital Signs Date Time Temp Pulse Resp B/P (MAP) Pulse Ox O2 Delivery O2 Flow Rate FiO2 08/25/17 08:20 Oxymask 10.0 08/25/17 01:21 Oxymask 10.0 08/24/17 19:30 Oxymask 10.0 08/24/17 16:00 Oxymask 10.0 Physical Exam General Appearance: no apparent distress, + cachetic, + thin Neck: supple, no JVD Respiratory/Chest: lungs clear, no respiratory distress, no accessory muscle use, + decreased breath sounds Cardiovascular: regular rate, rhythm, no edema, + normal peripheral pulses Abdomen: normal bowel sounds, soft Neurologic/Psychiatric: + pertinent finding (obtunded) Skin: normal color Assessment and Plan Problem list: SOB Altered mental status Respiratory failure, hypoxic and hypercarbic Severe COPD Hx non-small cell lung CA s/p right lower lobe wedge resection, possible recurrent malignancy seen on CT scan Mildly elevated troponin Goals of care (Z51.5) Palliative care recs: -Comfort care continues. Patient is not stable for transfer out of hospital. -Continue morphine IV PRN pain or SOB. -No Ativan to be given per family request. -Support given to family at bedside. -If frequent doses of IV morphine are required, can start continue infusion of morphine 1mg/hr, titrate by 1mg/hr Q15min PRN pain or SOB. Thank you again for this consult. Please contact me with any further palliative care needs. Palliative Performance Scale: 10 % Continued [facility] stay due to: multiple IV medications needed, home environment unsafe for pt Discharge planning: uncertain
[2017-08-25] MEDS ORDERED: NURSING VERBAL MED ORDER ONE ×8 (14:45→22:30)
[2017-08-25] MEDS: MORPHINE SULF/NSS 250MG/250ML IV PRN (15:15)
[2017-08-25 16:00] VITALS: O2SAT 98
--- NOTE | 2017-08-25 18:39 | Progress Note ---
Medicine Progress Note Date & Time of Visit: Aug 25, 2017 at 14:29. Subjective Pt was seen and examined Lying in bed unresponsive with family present Objective Physical Exam: General- unresponsive Head- atraumatic Eyes- PERRL ENT- oropharynx clear Lungs- No wheezing Heart- regular rhythm Abdomen- soft Extremities- no edema Neuro- unresponsive Skin- warm & dry Assessment & Plan Acute on chronic respiratory failure with hypoxia and hypercarbia secondary to COPD exacerbation COPD exacerbation likely Recurrence of malignancy. CT chest: Prior wedge resection of the right lower lobe with persistent multifocal soft tissue nodularity along the suture line suggesting recurrent neoplasm as previously discussed. Pt was struggled to breath on Bipap Pt and family declined Bipap Palliative care on board Pt was made comfort measure only On Morphine and breathing treatment Continue oxygen supplement DVT px on heparin subq CODE STATUS DNR Continued [facility] stay due to: multiple IV medications needed, home environment unsafe for pt Discharge planning: uncertain Consultants: Palliative care Critical care Pulmonary Current Inpatient Medications: Current Inpatient Medications Medications (Trade) Dose Ordered Sig/Steven Route Start Time Stop Time Status Last Admin Dose Admin Acetaminophen (Tylenol Tab) 650 mg Q4H PRN PO 08/20/17 12:30 09/19/17 12:29 Ondansetron HCl (Zofran Inj) 4 mg Q6H PRN IV 08/20/17 12:30 09/19/17 12:29 Budesonide/ Formoterol Fumarate (Symbicort 160/ 4.5 Inh) 2 puffs BID INH 08/20/17 21:00 09/19/17 20:59 08/22/17 20:38 2 PUFFS Heparin Sodium (Porcine) (Heparin Sq 5000 Unit/0.5ml) 5,000 unit Q12 SQ 08/20/17 21:00 09/19/17 20:59 08/23/17 07:53 5,000 UNIT Metoprolol Tartrate (Lopressor Iv) 5 mg Q6 PRN IV 08/22/17 18:15 09/21/17 18:14 Sodium Chloride 1,000 ml @ 50 mls/hr Q20H IV 08/23/17 20:30 09/22/17 20:29 08/25/17 13:28 50 MLS/HR Morphine Sulfate (MoRPHine SULFATE INJ) 1 mg Q1H PRN IV 08/24/17 11:30 09/06/17 14:59 08/25/17 17:20 1 MG Ipratropium [place] (Atrovent 0.02% 0.5MG/2.5ML Neb) 0.5 mg Q4R PRN INH 08/24/17 11:30 09/21/17 11:59 Levalbuterol (Xopenex 1.25MG/ 0.5ML Neb) 0.63 mg Q4R PRN INH 08/24/17 11:30 09/21/17 11:59 Albuterol/ Ipratropium (Duoneb) 3 ml Q4H PRN INH 08/24/17 11:30 09/22/17 01:59 Morphine Sulfate/ Dextrose 250 ml @ 3 mls/hr Q24H PRN IV 08/25/17 14:45 09/08/17 14:44 08/25/17 15:15 1 MLS/HR
[2017-08-26] MEDS: HEPARIN SOD 5000 UNIT/0.5 ML CARP SQ SCH ×2 (07:46→20:00)
[2017-08-26] MEDS: BUDESONIDE/FORMOTEROL FUMARATE 160/4.5 60 PUFFS/INHALER INH SCH ×2 (07:48→20:00)
[2017-08-26] MEDS: SODIUM CHLORIDE 0.9% 1000ML 1,000 ML IV SCH (07:57)
--- NOTE | 2017-08-26 15:45 | Palliative Care Progress Note ---
Palliative Care Progress Note Date of Service Aug 26, 2017. Subjective Pt evaluation today including: conversation w/ family ( and daughter-in- law) Pain: no s/s pain PO Intake: none Voiding: kruger catheter in place -Patient breathing is slow, shallow. Significant change from yesterday. -Completely obtunded. - and [id number] at bedside. is incredibly exhausted. I have spent significant time with him and his family in last couple days. Support given. -Morphine gtt infuses at 4.5mg/hr. Review of Systems unable to obtain Objective Vital Signs Date Time Temp Pulse Resp B/P (MAP) Pulse Ox O2 Delivery O2 Flow Rate FiO2 08/26/17 08:00 Oxymask 10.0 08/26/17 00:14 Oxymask 10.0 08/25/17 16:00 98 Oxymask 10.5 Physical Exam General Appearance: + cachetic, + thin Neck: no JVD Respiratory/Chest: no respiratory distress, no accessory muscle use, + pertinent finding (agonal breathing) Cardiovascular: + tachycardia (105), + normal peripheral pulses Abdomen: normal bowel sounds Neurologic/Psychiatric: + pertinent finding (obtunded) Assessment and Plan Problem list: SOB Altered mental status Respiratory failure, hypoxic and hypercarbic Severe COPD Hx non-small cell lung CA s/p right lower lobe wedge resection, possible recurrent malignancy seen on CT scan Mildly elevated troponin Goals of care (Z51.5) Palliative care recs: -Comfort care continues. Patient is not stable for transfer out of hospital. -Continue morphine infusion. Nursing is able to titrate for comfort. Currently at 4.5mg/hr. -No Ativan to be given per family request. -Support given to family at bedside. Thank you again for this consult. Please contact me with any further palliative care needs. Palliative Performance Scale: 10 % Continued [facility] stay due to: multiple IV medications needed, home environment unsafe for pt Discharge planning: uncertain
[2017-08-26 16:30] VITALS: O2SAT 98
--- NOTE | 2017-08-26 18:48 | Progress Note ---
Medicine Progress Note Date & Time of Visit: Aug 26, 2017 at 18:46. Subjective Pt was seen and examined Lying in bed obtunded at bedside Objective Physical Exam: General- obtunded Head- atraumatic Eyes- PERRL ENT- oropharynx clear Lungs- No wheezing Heart- regular rhythm Abdomen- soft Extremities- no edema Skin- warm & dry Assessment & Plan Acute on chronic respiratory failure with hypoxia and hypercarbia secondary to COPD exacerbation COPD exacerbation likely Recurrence of malignancy. CT chest: Prior wedge resection of the right lower lobe with persistent multifocal soft tissue nodularity along the suture line suggesting recurrent neoplasm as previously discussed. Pt was struggled to breath on Bipap Pt and family declined Bipap Palliative care on board Pt was made comfort measure only On Morphine and breathing treatment Continue oxygen supplement DVT px on heparin subq CODE STATUS DNR Continued [facility] stay due to: multiple IV medications needed, home environment unsafe for pt Discharge planning: uncertain Consultants: Palliative care Critical care Pulmonary Current Inpatient Medications: Current Inpatient Medications Medications (Trade) Dose Ordered Sig/Steven Route Start Time Stop Time Status Last Admin Dose Admin Acetaminophen (Tylenol Tab) 650 mg Q4H PRN PO 08/20/17 12:30 09/19/17 12:29 Ondansetron HCl (Zofran Inj) 4 mg Q6H PRN IV 08/20/17 12:30 09/19/17 12:29 Budesonide/ Formoterol Fumarate (Symbicort 160/ 4.5 Inh) 2 puffs BID INH 08/20/17 21:00 09/19/17 20:59 08/22/17 20:38 2 PUFFS Heparin Sodium (Porcine) (Heparin Sq 5000 Unit/0.5ml) 5,000 unit Q12 SQ 08/20/17 21:00 09/19/17 20:59 08/23/17 07:53 5,000 UNIT Metoprolol Tartrate (Lopressor Iv) 5 mg Q6 PRN IV 08/22/17 18:15 09/21/17 18:14 Sodium Chloride 1,000 ml @ 50 mls/hr Q20H IV 08/23/17 20:30 09/22/17 20:29 08/26/17 07:57 50 MLS/HR Morphine Sulfate (MoRPHine SULFATE INJ) 1 mg Q1H PRN IV 08/24/17 11:30 09/06/17 14:59 08/25/17 17:20 1 MG Ipratropium [place] (Atrovent 0.02% 0.5MG/2.5ML Neb) 0.5 mg Q4R PRN INH 08/24/17 11:30 09/21/17 11:59 Levalbuterol (Xopenex 1.25MG/ 0.5ML Neb) 0.63 mg Q4R PRN INH 08/24/17 11:30 09/21/17 11:59 Albuterol/ Ipratropium (Duoneb) 3 ml Q4H PRN INH 08/24/17 11:30 09/22/17 01:59 Morphine Sulfate/ Dextrose 250 ml @ 4.5 mls/hr Q24H PRN IV 08/25/17 14:45 09/08/17 14:44 08/25/17 15:15 1 MLS/HR
[2017-08-27] MEDS: SODIUM CHLORIDE 0.9% 1000ML 1,000 ML IV SCH (05:02)
[2017-08-27] MEDS: BUDESONIDE/FORMOTEROL FUMARATE 160/4.5 60 PUFFS/INHALER INH SCH ×2 (07:34→21:02)
[2017-08-27] MEDS: HEPARIN SOD 5000 UNIT/0.5 ML CARP SQ SCH ×2 (07:34→21:00)
--- NOTE | 2017-08-27 17:07 | Progress Note ---
Post ICU Progress Note Date & Time Aug 27, 2017 at 16:55 Vital Signs Vital Signs Past 12 Hours Date Time Temp Pulse Resp B/P (MAP) Pulse Ox O2 Delivery O2 Flow Rate FiO2 08/27/17 09:00 Oxymask 10.0 Notes Mental Status: alert / awake, participated in evaluation Nausea / Vomiting: adequately controlled Pain: adequately controlled Airway Patency, RR, SpO2: stable & adequate BP & HR: stable & adequate This is a 57 yo female that was admitted to the ICU for acute on chronic respiratory failure. Patient declined in spite of treatment. Palliative care consult was placed and family and patient elected comfort care. Patient was transferred to the for comfort care. I met with the this morning and he stated that she has been comfortable. He noted that care was excellent in both the ICU and on the floor. She remains on PRN morphine and is no longer on non-invasive ventilation. She appears comfortable with slow shallow breaths. Reviewed progress notes, labs, and inpatient medication list Continue current management of comfort care Thank you for including us in the care of this patient Consults & Procedures Consultants: Consultation: Critical care medicine, pulmonary medicine. Procedures: Procedures: None.
--- NOTE | 2017-08-27 18:51 | Progress Note ---
Medicine Progress Note Date & Time of Visit: Aug 27, 2017 at 11:49. Subjective Pt was seen and examined Comfort care only seems comfortable with and daughter at bedside Objective Last 8 Hrs Date Time Temp Pulse Resp B/P (MAP) Pulse Ox O2 Delivery O2 Flow Rate FiO2 08/27/17 16:00 Oxymask 10.0 Physical Exam: General- obtunded Head- atraumatic Eyes- PERRL ENT- oropharynx clear Lungs- No wheezing Heart- regular rhythm Abdomen- soft Extremities- no edema Skin- warm & dry Assessment & Plan Acute on chronic respiratory failure with hypoxia and hypercarbia secondary to COPD exacerbation COPD exacerbation likely Recurrence of malignancy. CT chest: Prior wedge resection of the right lower lobe with persistent multifocal soft tissue nodularity along the suture line suggesting recurrent neoplasm as previously discussed. Pt was struggled to breath on Bipap Pt and family declined Bipap Palliative care on board Pt was made comfort measure only On Morphine and breathing treatment Continue oxygen supplement Comfortable with slow shallow breaths. Answered all questions and concerned had. DVT px on heparin subq CODE STATUS DNR Continued [facility] stay due to: multiple IV medications needed, home environment unsafe for pt Discharge planning: uncertain Consultants: Palliative care Critical care Pulmonary Current Inpatient Medications: Current Inpatient Medications Medications (Trade) Dose Ordered Sig/Steven Route Start Time Stop Time Status Last Admin Dose Admin Acetaminophen (Tylenol Tab) 650 mg Q4H PRN PO 08/20/17 12:30 09/19/17 12:29 Ondansetron HCl (Zofran Inj) 4 mg Q6H PRN IV 08/20/17 12:30 09/19/17 12:29 Budesonide/ Formoterol Fumarate (Symbicort 160/ 4.5 Inh) 2 puffs BID INH 08/20/17 21:00 09/19/17 20:59 08/22/17 20:38 2 PUFFS Heparin Sodium (Porcine) (Heparin Sq 5000 Unit/0.5ml) 5,000 unit Q12 SQ 08/20/17 21:00 09/19/17 20:59 08/23/17 07:53 5,000 UNIT Metoprolol Tartrate (Lopressor Iv) 5 mg Q6 PRN IV 08/22/17 18:15 09/21/17 18:14 Sodium Chloride 1,000 ml @ 50 mls/hr Q20H IV 08/23/17 20:30 09/22/17 20:29 08/27/17 05:02 50 MLS/HR Morphine Sulfate (MoRPHine SULFATE INJ) 1 mg Q1H PRN IV 08/24/17 11:30 09/06/17 14:59 08/25/17 17:20 1 MG Ipratropium [place] (Atrovent 0.02% 0.5MG/2.5ML Neb) 0.5 mg Q4R PRN INH 08/24/17 11:30 09/21/17 11:59 Levalbuterol (Xopenex 1.25MG/ 0.5ML Neb) 0.63 mg Q4R PRN INH 08/24/17 11:30 09/21/17 11:59 Albuterol/ Ipratropium (Duoneb) 3 ml Q4H PRN INH 08/24/17 11:30 09/22/17 01:59 Morphine Sulfate/ Dextrose 250 ml @ 4.5 mls/hr Q24H PRN IV 08/25/17 14:45 09/08/17 14:44 08/25/17 15:15 1 MLS/HR
[2017-08-28] MEDS: SODIUM CHLORIDE 0.9% 1000ML 1,000 ML IV SCH (00:05)
[2017-08-28] MEDS: MORPHINE SULF/NSS 250MG/250ML IV PRN (02:09)
[2017-08-28] MEDS: BUDESONIDE/FORMOTEROL FUMARATE 160/4.5 60 PUFFS/INHALER INH SCH (07:07)
[2017-08-28] MEDS: HEPARIN SOD 5000 UNIT/0.5 ML CARP SQ SCH (07:08)
--- NOTE | 2017-08-28 19:32 | Progress Note ---
Medicine Progress Note Date & Time of Visit: Aug 28, 2017 at 15:10. Subjective Nurse call because pt was ceased to breath I went to evaluate pt and daughter were at bedside She had no pulse and no heart beat on auscultation No breath sound noted Objective Physical Exam: General- obtunded Head- atraumatic Eyes- PERRL ENT- oropharynx clear Lungs- No wheezing Heart- regular rhythm Abdomen- soft Extremities- no edema Skin- warm & dry Assessment & Plan Acute on chronic respiratory failure with hypoxia and hypercarbia secondary to COPD exacerbation COPD exacerbation likely Recurrence of malignancy. CT chest: Prior wedge resection of the right lower lobe with persistent multifocal soft tissue nodularity along the suture line suggesting recurrent neoplasm as previously discussed. Pt was struggled to breath on Bipap Pt and family declined Bipap Palliative care on board Pt was made comfort measure only On Morphine and breathing treatment Continue oxygen supplement Comfortable with slow shallow breaths. Answered all questions and concerned had. 08/28 No pulse felt, no HR and no breath sound Her Pupils was fixed Pt was @ 14:40 on 08/28/17 certificate signed DVT px on heparin subq CODE STATUS DNR Continued [facility] stay due to: multiple IV medications needed, home environment unsafe for pt Discharge planning: uncertain Consultants: Palliative care Critical care Pulmonary
--- NOTE | 2017-09-04 17:02 | Discharge Summary ---
Discharge Summary Date of Service Sep 04, 2017. Discharge Summary Admission Date: Aug 20, 2017 at 12:34 Discharge Disposition: Principal Diagnosis: Acute on chronic respiratory failure with hypoxia and hypercarbia secondary to COPD exacerbation Consultations: Palliative care Critical care Pulmonary Admission Information HPI (per Admitting provider): 57 year old female who presents to the ED with shortness of breath. Patient reports her symptoms developed almost one week ago. She reports she typically has shortness of breath with exertion however it has been worsening and she has had shortness of breath with rest as well. She chronically wears 1L of oxygen but increased it to 2L over the past couple of days. She reports symptoms of "chest cold" with rhinorrhea and sore throat. She reports a chronic dry at baseline that is worse as well and continued to be non productive. She felt she has had chills and felt like she had a fever but did not check her temperature. She has had progressive worsening generalized weakness to the point where she could not get off of the couch this morning. EMS was then called. Family is at the bedside and report that they did not notice any confusion or altered mental status. She denies chest pain and palpitations. She reports a couple episodes of diarrhea and denies BRBPR and dark tarry stools. She reports she has had a poor appetite but denied abdominal pain, nausea, and vomiting. No urinary symptoms. She called her cosmetic consultant early in the week with the aforementioned complaints and he placed her on Augmentin and tapering steroid pack. Noted that patient is on chronic Prednisone 10mg daily. In the ED, patient was somnolent and ABG was obtained that showed respiratory acidosis. She was placed on Bipap with improvement in her symptoms. She was also given IV solumedrol, nebs, Mg+, Zosyn, Levaquin, Zofran, and IVF. Physical Exam (per Admitting): General Appearance: no apparent distress, + cachetic Head: normocephalic, atraumatic Eyes: normal inspection, PERRL, EOMI, sclerae normal ENT: hearing grossly normal, + pertinent finding (dry mucous membranes) Neck: supple, no JVD, trachea midline Respiratory/Chest: no respiratory distress, + decreased breath sounds (poor air entry noted throughout all lung [place] ), + wheezing (faint, end expiratory ), + pertinent finding (on BiPap 10/5 40%) Cardiovascular: regular rate, rhythm, no edema, normal peripheral pulses Abdomen/GI: normal bowel sounds, non tender, soft, no organomegaly Extremities/Musculoskelatal: normal inspection, no calf tenderness Neurologic/Psych: no motor/sensory deficits, alert, normal mood/affect, oriented x 3 Skin: normal color, warm/dry Hospital Course Acute on chronic respiratory failure with hypoxia and hypercarbia secondary to COPD exacerbation COPD exacerbation likely Recurrence of malignancy. CT chest: Prior wedge resection of the right lower lobe with persistent multifocal soft tissue nodularity along the suture line suggesting recurrent neoplasm as previously discussed. Pt was struggled to breath on Bipap Pt and family declined Bipap Palliative care on board Pt was made comfort measure only On Morphine and breathing treatment Continue oxygen supplement Comfortable with slow shallow breaths. Answered all questions and concerned had. 08/28 No pulse felt, no HR and no breath sound Her Pupils was fixed Pt was @ 14:40 on 08/28/17 certificate signed DVT px on heparin subq CODE STATUS DNR Total time spent on discharge = 20 minutes This includes examination of the patient, discharge planning, medication reconciliation, and communication with other providers. Discharge Instructions Pt was @ 14:40 on 08/28/17 Additional Copies To Amanda Rey M.D.
== END 2017-08-28 15:41 | disposition expired | DRG 189 ==
LOC: EDBD 09:30 → C.EDB 09:32 → C.MSICU 12:34 → ENRESERV 12:38 → C.2T 08-21 19:12 → C.4E 08-24 11:19 → EDBEDREQ 08-24 11:21 → ENRESERV 08-24 11:31
PROVIDERS: ADMIT Hospitalist; ATTEND Internal Medicine
DX: J96.22 Acute and chronic respiratory failure with hypercapnia (principal); J44.1 Chronic obstructive pulmonary disease with (acute) exacerbation; C34.31 Malignant neoplasm of lower lobe, right bronchus or lung; E87.2 Acidosis; R64 Cachexia; Z68.1 Body mass index [BMI] 19.9 or less, adult; J96.21 Acute and chronic respiratory failure with hypoxia; Z51.5 Encounter for palliative care; F17.200 Nicotine dependence, unspecified, uncomplicated; Z51.81 Encounter for therapeutic drug level monitoring; Z79.899 Other long term (current) drug therapy; Z79.52 Long term (current) use of systemic steroids; Z66 Do not resuscitate; Z99.81 Dependence on supplemental oxygen; Z80.1 Family history of malignant neoplasm of trachea, bronchus and lung; Z82.5 Family history of asthma and other chronic lower respiratory diseases